=== PATIENT | female | born 1990 | race Caucasian/White ===

== ENCOUNTER 2016-06-11 16:42 | Emergency (ER) | payer SELFPAY ==
--- NOTE | 2016-06-11 17:04 | ER Document Report ---
ED Medical Screen (RME) - General Stated Complaint: VAGINAL BLEEDING Mode of Arrival: Ambulatory Information source: Patient Notes: Patient states she is about 5 or 6 weeks and has had vaginal bleeding. Patient reports cramping and dizziness. . hx: None I have greeted and performed a rapid initial assessment of this patient. A comprehensive ED assessment and evaluation of the patient, analysis of test results and completion of the medical decision making process will be conducted by additional ED providers. TRAVEL OUTSIDE OF THE [place] IN LAST 30 DAYS: No - Related Data Allergies/Adverse Reactions: No Known Allergies Allergy (Verified 08/18/15 22:53) Past Medical History - Immunizations Hx Diphtheria, Pertussis, Tetanus Vaccination: - unk Physical Exam - Vital signs Vitals: Temp Pulse Resp BP Pulse Ox 98.2 F 74 16 113/61 100 06/11/16 16:56 06/11/16 16:56 06/11/16 16:56 06/11/16 16:56 06/11/16 16:56 - Abdominal Tenderness: Tender - Lower pelvic Course - Re-evaluation Re-evalutation: 06/11/16 17:[address] Haley who agrees with plan for ultrasound. - Vital Signs Vital signs: Temp Pulse Resp BP Pulse Ox 98.2 F 74 16 113/61 100 06/11/16 16:56 06/11/16 16:56 06/11/16 16:56 06/11/16 16:56 06/11/16 16:56
[2016-06-11 18:19] LABS: ABSOLUTE BASOPHILS # (AUTO) 0.1 10^3/uL (0.0-0.2); ABSOLUTE EOSINOPHILS # (AUTO) 0.2 10^3/uL (0.0-0.6); ABSOLUTE LYMPHOCYTES (AUTO) 2.7 10^3/uL (0.5-4.7); ABSOLUTE MONOCYTES (AUTO) 0.6 10^3/uL (0.1-1.4); ABSOLUTE NEUT (AUTO) 8.8 10^3/uL (1.7-8.2); BASOPHILS % (AUTO) 0.5 % (0-2); EOSINOPHILS % (AUTO) 1.8 % (0-6); HEMATOCRIT 39.6 % (36.0-47.0); HEMOGLOBIN 12.9 g/dL (12.0-15.5); HGB HCT DIFFERENCE -0.9; LYMPHOCYTES % (AUTO) 21.8 % (13-45); MEAN CORPUSCULAR HEMOGLOBIN 27.1 pg (27.0-33.4); MEAN CORPUSCULAR HGB CONC 32.6 g/dL (32.0-36.0); MEAN CORPUSCULAR VOLUME 83 fl (80-97); MONOCYTES % (AUTO) 5.2 % (3-13); RED BLOOD COUNT 4.77 10^6/uL (3.72-5.28); RED CELL DISTRIBUTION WIDTH 13.4 % (11.5-14.0); SEGMENTED NEUTROPHILS % (AUTO) 70.7 % (42-78); WHITE BLOOD COUNT 12.4 10^3/uL (4.0-10.5)
[2016-06-11 18:26] LABS: APPEARANCE,URINE CLEAR; BILIRUBIN,URINE NEGATIVE (NEGATIVE); GLUCOSE, URINE NEGATIVE (NEGATIVE); KETONES,URINE NEGATIVE (NEGATIVE); LEUKOCYTE ESTERASE,URINE NEGATIVE (NEGATIVE); NITRITE,URINE NEGATIVE (NEGATIVE); PROTEIN,URINE NEGATIVE (NEGATIVE); URINE SPECIFIC GRAVITY 1.013; UROBILINOGEN,URINE NEGATIVE mg/dL (<2.0)
[2016-06-11 18:36] LABS: ALANINE AMINOTRANSFERASE 28 U/L (9-52); ALBUMIN 4.2 g/dL (3.5-5.0); ALKALINE PHOSPHATASE 50 U/L (38-126); ANION GAP 10 (5-19); ASPARTATE AMINO TRANSFERASE 22 U/L (14-36); BILIRUBIN,TOTAL 0.4 mg/dL (0.2-1.3); BLOOD UREA NITROGEN 15 mg/dL (7-20); CALCIUM 9.6 mg/dL (8.4-10.2); CARBON DIOXIDE 26 mmol/L (22-30); CHLORIDE 101 mmol/L (98-107); CREATININE RESULT 0.56 mg/dL (0.52-1.25); GLUCOSE 82 mg/dL (75-110); POTASSIUM 4.6 mmol/L (3.6-5.0); SODIUM 136.9 mmol/L (137-145); TOTAL PROTEIN 7.6 g/dL (6.3-8.2)
--- NOTE | 2016-06-11 20:07 | ER Document Report ---
ED GI/ - General Chief Complaint: Vag Bleeding, +preg <12wks Stated Complaint: VAGINAL BLEEDING Mode of Arrival: Ambulatory Information source: Patient TRAVEL OUTSIDE OF THE [place] IN LAST 30 DAYS: No - HPI Patient complains to provider of: Pelvic pain, , Vaginal bleeding Onset: This evening Timing/Duration: Sudden Quality of pain: Cramping Severity at maximum: Mild Context: . denies: Bad food, Lifting, Out of the country travel, Recent trauma Location: Pelvis Vaginal bleeding (Compared to normal period): Heavier - ALITTLE HEAVIER THAN A NORMAL PERIOD, NOW HAS DECREASED Menstrual period history: LMP: 05/03/2016 : 3 Para: 1 Abortions: 1 Sexual history: Active Associated symptoms: None Exacerbated by: Denies Relieved by: Denies Similar symptoms previously: Yes - W/ PRIOR SPONT. AB Recently seen / treated by doctor: No - Related Data Allergies/Adverse Reactions: No Known Allergies Allergy (Verified 08/18/15 22:53) Past Medical History - General Information source: Patient - Social History Smoking Status: Unknown if Ever Smoked Chew tobacco use (# tins/day): No Frequency of alcohol use: None Drug Abuse: None Lives with: Spouse/Significant other Family History: Reviewed & Not Pertinent Patient has suicidal ideation: No Patient has homicidal ideation: No - Past Medical History Cardiac Medical History: Reports: None Pulmonary Medical History: Reports: None EENT Medical History: Reports: None Neurological Medical History: Reports: None Endocrine Medical History: Reports: None Renal/ Medical History: Reports: None. Denies: Hx Peritoneal Dialysis Malignancy Medical History: Reports: None GI Medical History: Reports: None Musculoskeltal Medical History: Reports None Psychiatric Medical History: Reports: None Surgical Hx: Negative - Immunizations Hx Diphtheria, Pertussis, Tetanus Vaccination: - unk Review of Systems - Review of Systems Constitutional: No symptoms reported EENT: No symptoms reported Cardiovascular: No symptoms reported Respiratory: No symptoms reported Gastrointestinal: No symptoms reported Genitourinary: No symptoms reported Female Genitourinary: See HPI Musculoskeletal: No symptoms reported Skin: No symptoms reported Neurological/Psychological: No symptoms reported Physical Exam - Vital signs Vitals: Temp Pulse Resp BP Pulse Ox 98.2 F 74 16 113/61 100 06/11/16 16:56 06/11/16 16:56 06/11/16 16:56 06/11/16 16:56 06/11/16 16:56 Interpretation: Normal - General General appearance: Appears well, Alert In distress: None - HEENT Head: Normocephalic Eyes: Normal Conjunctiva: Normal Ears: Normal Nasal: Normal Mouth/Lips: Normal Mucous membranes: Normal - Respiratory Respiratory status: No respiratory distress - Genitourinary Notes: TEST ARCHITECT EXAM OMITTED PER PATIENT REQUEST - Extremities General upper extremity: Normal inspection General lower extremity: Normal inspection - Neurological Neuro grossly intact: Yes Cognition: Normal Orientation: AAOx4 - Psychological Associated symptoms: Normal affect, Normal mood - Skin Skin Temperature: Warm Skin Moisture: Dry Skin Color: Normal Skin Turgor: Elastic Course - Re-evaluation Re-evalutation: 06/11/16 20:14 Results of laboratory and ultrasound evaluation discussed in detail with patient. She understands the possibility of having a spontaneous , and is aware of the importance of timely follow-up. - Vital Signs Vital signs: Temp Pulse Resp BP Pulse Ox 98.2 F 74 16 113/61 100 06/11/16 16:56 06/11/16 16:56 06/11/16 16:56 06/11/16 16:56 06/11/16 16:56 - Laboratory Result Diagrams: 06/11/16 17:50 06/11/16 17:50 Laboratory results interpreted by me: 06/11/16 06/11/16 06/11/16 17:50 17:50 17:50 WBC 12.4 H Absolute Neutrophils 8.8 H Sodium 136.9 L Beta HCG, Quant 16139.00 H Urine Blood MODERATE H Discharge - Discharge Clinical Impression: Vaginal bleeding in patient at less than 20 weeks gestation Condition: Stable Disposition: HOME, SELF-CARE Instructions: Bleeding During Early ([facility]) Additional Instructions: BED REST FOR NEXT 48 HOURS. DRINK PLENTY OF FLUIDS. FOLLOW UP SUNDAY WITH [facility], CALL OFFICE TOMORROW ( SUNDAY) FOR APPT. RETURN TO E.R. FOR RE-EVALUATION IF YOU GET WORSE OR IF ANY NEW PROBLEMS, ANY TIME. Referrals: SANDHYA DAI MD [ACTIVE STAFF] - 06/13/16
[2016-06-11 20:17] VITALS: BP 120/62
== END 2016-06-11 20:15 | disposition home or self-care (01) ==
LOC: ER 16:42
DX: O20.9 Hemorrhage in early pregnancy, unspecified (principal); Z3A.01 Less than 8 weeks gestation of pregnancy
CPT/HCPCS: 36415; 76817; 80053; 81001; 84702; 85025; 86900; 86901; 99284

== ENCOUNTER 2016-06-13 16:02 | Emergency (ER) | payer SELFPAY | END 2016-06-13 17:00 | disposition left against medical advice (07) | LOC: ER 16:02 | DX: Z53.9 Procedure and treatment not carried out, unspecified reason (principal); R10.30 Lower abdominal pain, unspecified ==

== ENCOUNTER 2016-07-17 15:11 | Emergency (ER) | payer SELFPAY ==
--- NOTE | 2016-07-17 15:17 | ER Document Report ---
ED Medical Screen (RME) - General Stated Complaint: ABDOMINAL PAIN Mode of Arrival: Ambulatory Information source: Patient Notes: She presents to the emergency department with lower abdominal pain with brown red vaginal discharge. Patient reports she is . Denies fever vomiting diarrhea. I have greeted and performed a rapid initial assessment of this patient. A comprehensive ED assessment and evaluation of the patient, analysis of test results and completion of the medical decision making process will be conducted by additional ED providers. TRAVEL OUTSIDE OF THE [place] IN LAST 30 DAYS: No - Related Data Allergies/Adverse Reactions: No Known Allergies Allergy (Verified 07/17/16 15:15) Past Medical History Renal/ Medical History: Denies: Hx Peritoneal Dialysis - Immunizations Hx Diphtheria, Pertussis, Tetanus Vaccination: - unk
[2016-07-17 15:18] VITALS: BP 104/56
[2016-07-17 15:40] LABS: ABSOLUTE EOSINOPHILS # (AUTO) 0.1 10^3/uL (0.0-0.6); ABSOLUTE LYMPHOCYTES (AUTO) 1.8 10^3/uL (0.5-4.7); ABSOLUTE MONOCYTES (AUTO) 0.6 10^3/uL (0.1-1.4); ABSOLUTE NEUT (AUTO) 6.8 10^3/uL (1.7-8.2); BASOPHILS % (AUTO) 0.3 % (0-2); EOSINOPHILS % (AUTO) 0.7 % (0-6); HEMATOCRIT 35.6 % (36.0-47.0); HEMOGLOBIN 11.8 g/dL (12.0-15.5); HGB HCT DIFFERENCE -0.2; LYMPHOCYTES % (AUTO) 18.9 % (13-45); MEAN CORPUSCULAR HEMOGLOBIN 27.3 pg (27.0-33.4); MEAN CORPUSCULAR HGB CONC 33.2 g/dL (32.0-36.0); MEAN CORPUSCULAR VOLUME 82 fl (80-97); MONOCYTES % (AUTO) 6.7 % (3-13); RED BLOOD COUNT 4.33 10^6/uL (3.72-5.28); RED CELL DISTRIBUTION WIDTH 13.3 % (11.5-14.0); SEGMENTED NEUTROPHILS % (AUTO) 73.4 % (42-78); WHITE BLOOD COUNT 9.3 10^3/uL (4.0-10.5)
[2016-07-17 15:51] LABS: ALANINE AMINOTRANSFERASE 31 U/L (9-52); ALBUMIN 4.1 g/dL (3.5-5.0); ALKALINE PHOSPHATASE 54 U/L (38-126); ANION GAP 9 (5-19); ASPARTATE AMINO TRANSFERASE 22 U/L (14-36); BILIRUBIN,TOTAL 0.3 mg/dL (0.2-1.3); BLOOD UREA NITROGEN 11 mg/dL (7-20); CALCIUM 9.6 mg/dL (8.4-10.2); CARBON DIOXIDE 25 mmol/L (22-30); CHLORIDE 102 mmol/L (98-107); CREATININE RESULT 0.52 mg/dL (0.52-1.25); GLUCOSE 85 mg/dL (75-110); POTASSIUM 4.1 mmol/L (3.6-5.0); SODIUM 135.8 mmol/L (137-145)
[2016-07-17 15:53] LABS: APPEARANCE,URINE SLIGHTLY-CLOUDY; BILIRUBIN,URINE NEGATIVE (NEGATIVE); GLUCOSE, URINE NEGATIVE (NEGATIVE); KETONES,URINE 20 mg/dL (NEGATIVE); LEUKOCYTE ESTERASE,URINE SMALL (NEGATIVE); NITRITE,URINE POSITIVE (NEGATIVE); PROTEIN,URINE NEGATIVE (NEGATIVE); URINE SPECIFIC GRAVITY 1.017; UROBILINOGEN,URINE NEGATIVE mg/dL (<2.0)
[2016-07-17] MEDS ORDERED: CEPHALEXIN 500 MG CAPSULE PO ONE (16:59)
--- NOTE | 2016-07-17 17:10 | ER Document Report ---
ED GI/ - General Chief Complaint: Vag Bleeding, +preg <12wks Stated Complaint: ABDOMINAL PAIN Time seen by provider: 16:50 Mode of Arrival: Ambulatory Information source: Patient Notes: 25-year-old female presents to ED for vaginal bleeding with brown E shred discharge. She states she is about 10 weeks denies any nausea vomiting diarrhea or states she does have a little bit of pinching pain in her pelvic area. TRAVEL OUTSIDE OF THE [place] IN LAST 30 DAYS: No - HPI Patient complains to provider of: Pelvic pain, , Vaginal bleeding Onset: Yesterday Timing/Duration: Intermittent Quality of pain: Other - Pinching Severity at maximum: Mild Pain Level: 1 Location: Pelvis Vaginal bleeding (Compared to normal period): Spotting : 2 Para: 1 heart tones (bpm): 168 EDC: 02/06/17 ABO type: O Rh factor: + OB ultrasound done: Yes Associated symptoms: Vaginal discharge Exacerbated by: Denies Relieved by: Denies Similar symptoms previously: Yes Recently seen / treated by doctor: No - Related Data Allergies/Adverse Reactions: No Known Allergies Allergy (Verified 07/17/16 15:15) Past Medical History - General Information source: Patient - Social History Smoking Status: Never Smoker Cigarette use (# per day): No Chew tobacco use (# tins/day): No Smoking Education Provided: No Frequency of alcohol use: None - None since she found out she was Drug Abuse: None - None 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 Lives with: Alone - Alone with her child Family History: Hypertension Patient has suicidal ideation: No Patient has homicidal ideation: No - Past Medical History Cardiac Medical History: Reports: None Pulmonary Medical History: Reports: None EENT Medical History: Reports: None Neurological Medical History: Reports: None Endocrine Medical History: Reports: None Renal/ Medical History: Reports: None Malignancy Medical History: Reports: None GI Medical History: Reports: None Musculoskeltal Medical History: Reports None Skin Medical History: Reports Hx Cellulitis Psychiatric Medical History: Reports: None Traumatic Medical History: Reports: None Infectious Medical History: Reports: None Surgical Hx: Negative Past Surgical History: Reports: None - Immunizations Hx Diphtheria, Pertussis, Tetanus Vaccination: - unk Review of Systems - Review of Systems Constitutional: No symptoms reported EENT: No symptoms reported Cardiovascular: No symptoms reported Respiratory: No symptoms reported Gastrointestinal: No symptoms reported Genitourinary: No symptoms reported Female Genitourinary: , Vaginal bleeding - Brown and red drainage Musculoskeletal: No symptoms reported Skin: No symptoms reported Hematologic/Lymphatic: No symptoms reported Neurological/Psychological: No symptoms reported -: Yes All other systems reviewed and negative Physical Exam - Vital signs Vitals: Temp Pulse Resp BP Pulse Ox 98.1 F 68 20 104/56 L 100 07/17/16 15:16 07/17/16 15:16 07/17/16 15:16 07/17/16 15:16 07/17/16 15:16 Interpretation: Normal - General General appearance: Appears well, Alert - HEENT Head: Normocephalic, Atraumatic Eyes: Normal Pupils: PERRL - Respiratory Respiratory status: No respiratory distress Chest status: Nontender Breath sounds: Normal Chest palpation: Normal - Cardiovascular Rhythm: Regular Heart sounds: Normal auscultation Murmur: No - Abdominal Inspection: Gravid female Distension: No distension Bowel sounds: Normal Tenderness: Tender - Mildly tender Organomegaly: No organomegaly - Back Back: Normal, Nontender - Extremities General upper extremity: Normal inspection, Nontender, Normal color, Normal ROM , Normal temperature General lower extremity: Normal inspection, Nontender, Normal color, Normal ROM , Normal temperature, Normal weight bearing. No: Cande's sign - Neurological Neuro grossly intact: Yes Cognition: Normal Orientation: AAOx4 Ayesha Coma Scale Eye Opening: Spontaneous [place] Coma Scale Verbal: Oriented [place] Coma Scale Motor: Obeys Commands [place] Coma Scale Total: 15 Speech: Normal Motor strength normal: LUE, RUE, LLE, RLE Sensory: Normal - Psychological Associated symptoms: Normal affect, Normal mood - Skin Skin Temperature: Warm Skin Moisture: Dry Skin Color: Normal Course - Re-evaluation Re-evalutation: 07/17/16 17:46 Discussed labs ultrasound with patient we'll discharge patient home to follow- up with [facility]. Patient is 10 weeks and 6 days with a IUP and a small subchorionic bleed. 07/17/16 19:04 - Vital Signs Vital signs: Temp Pulse Resp BP Pulse Ox 98.1 F 68 20 104/56 L 100 07/17/16 15:16 07/17/16 15:16 07/17/16 15:16 07/17/16 15:16 03/13/17 15:16 - Laboratory Result Diagrams: 07/17/16 15:20 07/17/16 15:20 Laboratory results interpreted by me: 07/17/16 07/17/16 07/17/16 15:20 15:20 15:25 Hgb 11.8 L Hct 35.6 L Sodium 135.8 L Beta HCG, Quant 707215.00 H Urine Ketones 20 H Urine Nitrite POSITIVE H Ur Leukocyte Esterase SMALL H - Diagnostic Test Radiology reviewed: Image reviewed, Reports reviewed Discharge - Discharge Clinical Impression: Normal intrauterine on ultrasound in first trimester, vaginal bleeding early UTI (urinary tract infection) Qualifiers: Urinary tract infection type: site unspecified Hematuria presence: without hematuria Qualified Code(s): N39.0 - Urinary tract infection, site not specified Condition: Stable Disposition: HOME, SELF-CARE Instructions: Bleeding During Early ([facility]), Pelvic Pain in ( [facility]) Additional Instructions: : You are . care is best started as early in as possible. If you're unsure about continuing this , you should discuss this with your physician or with gamma facilities operator at [facility]. You should take only medications approved by your physician. Acetaminophen can safely be taken for minor pains. As a rule, medication for chronic conditions such as asthma or seizures can safely be continued. You should discuss with the physician every medicine you take. Any regular exercise program can be continued. Talk to your physician, however, before engaging in competitive or demanding sports. Alcohol, smoking, and "street drugs" are dangerous to your baby. Cocaine is especially dangerous. Don't use any illicit drugs! BLEEDING DURING EARLY : You have been evaluated for passing blood while . While we take this symptom very seriously, most women with your degree of bleeding will go on to have a perfectly normal baby. At this time, there is no indication that a miscarriage will occur. (A miscarriage occurs when the fetus is abnormal. There is no medicine or treatment to prevent it.) A more serious cause of bleeding is tubal (or ectopic) . An ultrasound usually can show whether the is in the uterus or in the tube. Sometimes in early , no fetus is seen. In this case, careful follow-up, including repeat blood tests and repeat ultrasound, is necessary. Do not douche or have sex for at least a week, or until OK'd by the doctor. Don't use tampons. Call the doctor or return for re-examination if there is an increase in bleeding or cramping, extreme weakness, fainting, new abdominal pain, fever, or passage of tissue. URINARY TRACT INFECTION: Your evaluation indicates that you have a urinary tract infection. This is due to germs growing in the bladder. This is a common problem. This infection usually responds quickly to antibiotics. Your antibiotic should be taken exactly as prescribed. Drink plenty of fluids -- three to four quarts a day. Occasionally, a bladder anesthetic will be prescribed to help stop the feeling of urgency until the antibiotic has a chance to clear the infection. This may cause your urine to be dark orange. Certain urine infections require a culture. If the doctor obtained a culture, the results will be back in two days. You should call to see if a change in treatment is needed. A repeat urinalysis after you finish treatment is often recommended. The physician will let you know if further testing is required. Call the doctor if you develop fever, chills, flank pain, inability to urinate, or blood in the urine. CEPHALEXIN: The antibiotic you've been prescribed is a member of the cephalosporin class. This type of antibiotic covers a wide variety of infections, including those of the skin, lungs, and urinary tract. It's useful for staph infections. This antibiotic is slightly similar to the penicillin family. In rare cases , a person who is allergic to penicillin will also be allergic to this medication. If you have had a severe allergic reaction to penicillin, and have not taken this antibiotic since that time, notify your doctor. Antibiotics which cover many germs ("broad spectrum" antibiotics) are more likely to cause diarrhea or "yeast" infections. Women prone to vaginal yeast problems may suffer an attack after taking this antibiotic. In infants, oral thrush (white spots "stuck" on the cheek) or yeast diaper rash may result. See your doctor if these problems occur. Call at once if you develop itching, hives , shortness of breath, or lightheadedness. FOLLOW-UP CARE: If you have been referred to a physician for follow-up care, call the physician s office for an appointment as you were instructed or within the next two days. If you experience worsening or a significant change in your symptoms (very heavy bleeding with large clots of blood, passage of tissue, more severe abdominal / pelvic pain or cramping, feeling faint or severe weakness, fever, etc.), notify the physician immediately or return to the Emergency Department at any time for re-evaluation. OBSTETRIC-GYNECOLOGIC (OB-HOGS[facility] OPENER) PHYSICIANS IN [place]: [facility] [address] [place] [address] [phone] For active duty and dependents diagnosed with a threatened or miscarriage, you should follow up in the following manner: Standard patients who have a local civilian provider should follow up with that provider. Patients of the Family Practice Clinic should call your Team Nurse at 8: 00 am the following morning for further instructions. If you are neither a Standard patient nor a patient of the Family Practice Clinic, you should follow up at the [facility] [place] ([facility]) . Patients already enrolled in the [facility], [facility] patients not assigned to the Family Practice Clinic, and Active Duty patients not assigned to Family Practice Clinic should report to the [facility] at 8:00 am the next morning that the [facility] is open and then you will be seen in the OB Clinic at 11:00 am. Prescriptions: Cephalexin Monohydrate [Keflex 500 mg Capsule] 500 mg PO QID #20 capsule
== END 2016-07-17 17:55 | disposition home or self-care (01) ==
LOC: ER 15:11
DX: O23.41 Unspecified infection of urinary tract in pregnancy, first trimester (principal); O20.9 Hemorrhage in early pregnancy, unspecified; R10.9 Unspecified abdominal pain; Z3A.10 10 weeks gestation of pregnancy
CPT/HCPCS: 36415; 76801; 80053; 81001; 84702; 85025; 86900; 86901; 99284

== ENCOUNTER 2016-09-30 16:02 | Emergency (ER) | payer MEDICAID ==
[2016-09-30 16:10] VITALS: BP 98/56
--- NOTE | 2016-09-30 16:54 | EKG REPORT ---
SEVERITY:- NORMAL ECG - SINUS RHYTHM : Confirmed by: Robin Gaxiola MD 30-Sep-2016 16:53:51
--- NOTE | 2016-09-30 16:56 | ER Document Report ---
ED Medical Screen (RME) - General Chief Complaint: Chest Pain Stated Complaint: CHEST PAIN Time Seen by Provider: 09/30/16 16:15 Mode of Arrival: Ambulatory Information source: Patient TRAVEL OUTSIDE OF THE [place] IN LAST 30 DAYS: No - HPI Patient complains to provider of: Chest pain and shortness of breath Onset: This morning Onset/Duration: Sudden Quality of pain: Sharp Severity: Moderate Associated Symptoms: Shortness of breath Exacerbated by: Supine Similar symptoms previously: No Recently seen / treated by doctor: Yes Notes: 09/30/16 16:55 Is a 26-year-old female who is with no previous complications, who presents to the emergency room complaining of chest pain and shortness of breath, she is currently 22 weeks denies any recent periods of immobilization, no history of blood clots - Related Data Allergies/Adverse Reactions: No Known Allergies Allergy (Verified 09/30/16 16:07) Past Medical History Renal/ Medical History: Denies: Hx Peritoneal Dialysis Skin Medical History: Reports Hx Cellulitis - Immunizations Hx Diphtheria, Pertussis, Tetanus Vaccination: - unk Physical Exam - Vital signs Vitals: Temp Pulse Resp BP Pulse Ox 98.3 F 80 20 98/56 L 97 09/30/16 16:07 09/30/16 16:07 09/30/16 16:07 09/30/16 16:07 09/30/16 16:07 Course - Vital Signs Vital signs: Temp Pulse Resp BP Pulse Ox 98.3 F 80 20 98/56 L 97 09/30/16 16:07 09/30/16 16:07 09/30/16 16:07 09/30/16 16:07 09/30/16 16:07
--- NOTE | 2016-09-30 17:03 | RADIOLOGY REPORT (SQ) ---
EXAM DESCRIPTION: CHEST PA/LAT COMPLETED DATE/TIME: 09/30/2016 4:50 pm REASON FOR STUDY: cp COMPARISON: None. EXAM PARAMETERS: NUMBER OF VIEWS: two views TECHNIQUE: Digital Frontal and Lateral radiographic views of the chest acquired. RADIATION DOSE: NA LIMITATIONS: none FINDINGS: LUNGS AND PLEURA: No opacities, masses or pneumothorax. No pleural effusion. MEDIASTINUM AND HILAR STRUCTURES: No masses or contour abnormalities. HEART AND VASCULAR STRUCTURES: Heart normal size. No evidence for failure. BONES: No acute findings. HARDWARE: None in the chest. OTHER: No other significant finding. IMPRESSION: NO SIGNIFICANT RADIOGRAPHIC FINDING IN THE CHEST. TECHNICAL DOCUMENTATION: JOB ID: [id number] [employer]- All Rights Reserved
--- NOTE | 2016-09-30 17:31 | ER Document Report ---
ED General - General Mode of Arrival: Ambulatory Information source: Patient TRAVEL OUTSIDE OF THE [place]. IN LAST 30 DAYS: No - HPI Onset: This morning Onset/Duration: Intermittent Quality of pain: Sharp <MANJEET FINN - Last Filed: 09/30/16 17:32> <RAD GALAN - Last Filed: 09/30/16 23:56> - General Chief Complaint: Chest Pain Stated Complaint: CHEST PAIN Time Seen by Provider: 09/30/16 16:15 Notes: Patient is a 26-year-old female who presents to the emergency department today with complaints of left-sided chest pain that she noticed upon awakening today. Patient states the pain is located behind her left breast. Patient states it hurts to breathe. Patient states her pain is exacerbated with breathing in. Patient is 22 weeks . Patient is . Patient denies any complications with her first . Patient denies any family history of any clotting disorders. Patient denies any leg swelling or recent travel. ( MANJEET FINN) - Related Data Allergies/Adverse Reactions: No Known Allergies Allergy (Verified 09/30/16 16:07) Past Medical History - General Information source: Patient - Social History Smoking Status: Never Smoker Cigarette use (# per day): No Chew tobacco use (# tins/day): No Frequency of alcohol use: None Drug Abuse: None Lives with: Family Family History: Reviewed & Not Pertinent, Hypertension Patient has suicidal ideation: No Patient has homicidal ideation: No Skin Medical History: Reports Hx Cellulitis Surgical Hx: Negative - Immunizations Hx Diphtheria, Pertussis, Tetanus Vaccination: - unk <MANJEET FINN - Last Filed: 09/30/16 17:32> Review of Systems - Review of Systems Constitutional: No symptoms reported EENT: No symptoms reported Cardiovascular: No symptoms reported Respiratory: See HPI, Hurts to breathe - behind left breast Gastrointestinal: No symptoms reported Genitourinary: No symptoms reported Female Genitourinary: See HPI, Musculoskeletal: denies: Leg swelling Skin: No symptoms reported Hematologic/Lymphatic: No symptoms reported Neurological/Psychological: No symptoms reported -: Yes All other systems reviewed and negative <MANJEET FINN - Last Filed: 09/30/16 17:32> Physical Exam <MANJEET FINN - Last Filed: 09/30/16 17:32> <RAD GALAN - Last Filed: 09/30/16 23:56> - Vital signs Vitals: Temp Pulse Resp BP Pulse Ox 98.3 F 80 20 98/56 L 97 09/30/16 16:07 09/30/16 16:07 09/30/16 16:07 09/30/16 16:07 09/30/16 16:07 - Notes Notes: Physical Exam: General: Alert, appears well. HEENT: Normocephalic. Atraumatic. PERRL. Extraocular movements intact. Oropharynx clear. Neck: Supple. Non-tender. Respiratory: No respiratory distress. Clear and equal breath sounds bilaterally. Cardiovascular: Regular rate and rhythm. Abdominal: Normal Inspection. Non-tender. No distension. Normal Bowel Sounds. Back: Non-tender. No deformity or step off. Extremities: Moves all four extremities. Upper extremities: Normal inspection. Normal ROM. Lower extremities: Normal inspection. No edema. Normal ROM. Neurological: Normal cognition. AAOx4. Normal speech. Psychological: Normal affect. Normal Mood. Skin: Warm. Dry. Normal color. (MANJEET FINN) Course - Laboratory Result Diagrams: 09/30/16 17:55 09/30/16 17:55 <RAD GALAN - Last Filed: 09/30/16 23:56> - Vital Signs Vital signs: Temp Pulse Resp BP Pulse Ox 98.3 F 80 20 98/56 L 97 09/30/16 16:07 09/30/16 16:07 09/30/16 16:07 09/30/16 16:07 09/30/16 16:07 - Laboratory Laboratory results interpreted by me: 09/30/16 09/30/16 17:55 17:55 Hgb 10.9 L Hct 33.4 L Sodium 134.2 L Creatinine 0.48 L Discharge <MANJEET FINN - Last Filed: 09/30/16 17:32> <RAD GALAN - Last Filed: 09/30/16 23:56> - Discharge Clinical Impression: Chest pain, atypical Condition: Good Disposition: HOME, SELF-CARE Instructions: Chest Pain of Unclear Cause ([facility]) Additional Instructions: follow up with your doctor if symptoms persist. You may try Tylenol as needed for pain. You may use TUMS if you think reflux may be a factor in your chest pain. Scribe Attestation: 09/30/16 19:45 I personally performed the services described in the documentation, reviewed and edited the documentation which was dictated to the scribe in my presence, and it accurately records my words and actions. (RAD GALAN) Scribe Documentation - Scribe Written by Twan:: Twan Mantilla, 09/30/16 1738 acting as scribe for :: Elissa <MANJEET FINN - Last Filed: 09/30/16 17:32>
[2016-09-30 18:10] LABS: ABSOLUTE EOSINOPHILS # (AUTO) 0.2 10^3/uL (0.0-0.6); ABSOLUTE MONOCYTES (AUTO) 0.9 10^3/uL (0.1-1.4); ABSOLUTE NEUT (AUTO) 7.5 10^3/uL (1.7-8.2); BASOPHILS % (AUTO) 0.4 % (0-2); EOSINOPHILS % (AUTO) 1.6 % (0-6); HEMATOCRIT 33.4 % (36.0-47.0); HEMOGLOBIN 10.9 g/dL (12.0-15.5); HGB HCT DIFFERENCE -0.7; LYMPHOCYTES % (AUTO) 18.6 % (13-45); MEAN CORPUSCULAR HEMOGLOBIN 27.3 pg (27.0-33.4); MEAN CORPUSCULAR HGB CONC 32.7 g/dL (32.0-36.0); MEAN CORPUSCULAR VOLUME 83 fl (80-97); MONOCYTES % (AUTO) 8.4 % (3-13); RED BLOOD COUNT 4.01 10^6/uL (3.72-5.28); RED CELL DISTRIBUTION WIDTH 13.7 % (11.5-14.0); WHITE BLOOD COUNT 10.5 10^3/uL (4.0-10.5)
[2016-09-30 18:25] LABS: ALANINE AMINOTRANSFERASE 32 U/L (9-52); ALBUMIN 3.8 g/dL (3.5-5.0); ALKALINE PHOSPHATASE 67 U/L (38-126); ANION GAP 7 (5-19); ASPARTATE AMINO TRANSFERASE 26 U/L (14-36); BILIRUBIN,DIRECT 0.3 mg/dL (0.0-0.4); BILIRUBIN,TOTAL 0.4 mg/dL (0.2-1.3); BLOOD UREA NITROGEN 10 mg/dL (7-20); CALCIUM 9.8 mg/dL (8.4-10.2); CARBON DIOXIDE 26 mmol/L (22-30); CHLORIDE 101 mmol/L (98-107); CREATININE RESULT 0.48 mg/dL (0.52-1.25); GLUCOSE 84 mg/dL (75-110); POTASSIUM 4.3 mmol/L (3.6-5.0); SODIUM 134.2 mmol/L (137-145)
--- NOTE | 2016-09-30 19:18 | RADIOLOGY REPORT (SQ) ---
EXAM DESCRIPTION: CTA CHEST COMPLETED DATE/TIME: 09/30/2016 6:54 pm REASON FOR STUDY: SOB COMPARISON: Chest x-ray dated 09/30/2016 TECHNIQUE: CT scan of the chest performed using helical scanning technique with dynamic intravenous contrast injection. Images reviewed with lung, soft tissue and bone windows. Reconstructed coronal and sagittal MPR images reviewed. Additional 3 dimensional post-processing performed to develop Maximal Intensity Projection images (SD P). All images stored on PACS. All CT scanners at this facility use dose modulation, iterative reconstruction, and/or weight based d osing when appropriate to reduce radiation dose to as low as reasonably achievable (ALARA). [facility]: Dose Right [facility]: CareDose [facility]: Dose Right [facility]: Teradose 4D [facility]: [employer] CONTRAST TYPE AND DOSE: 63 mL Isovue 370 RENAL FUNCTION: None required. The patient is less than 50 years old. RADIATION DOSE: 38.71 mGy. LIMITATIONS: Study is limited to motion artifact and suboptimal opacification of the pulmonary arter ies FINDINGS: LUNGS AND PLEURA: No masses, infiltrates, pneumothorax. No pleural effusions, calcificati ons. AORTA AND GREAT VESSELS: No aneurysm or dissection. HEART: No pericardial effusion. PULMONARY ARTERIES: No emboli visualized in the main pulmonary arteries or the segmental branches. HILAR AND MEDIASTINAL STRUCTURES: No identified masses or abnormal nodes. HARDWARE: None in the chest. UPPER ABDOMEN: No significant findings. Limited exam. THYROID AND OTHER SOFT TISSUES: No masses. No adenopathy. BONES: No acute or significant finding. 3D MIPS: Confirm above findings. OTHER: No other significant finding. IMPRESSION: No evidence for pulmonary embolic disease. No acute consolidations or pleural effusions are identified. Other findings as noted above TECHNICAL DOCUMENTATION: JOB ID: [id number] Quality ID # [id number]: Final reports with documentation of one or more dose reduction techniques (e.g., Au tomated exposure control, adjustment of the mA and/or kV according to patient size, use of iterative reconstruction technique) 2010 [employer]- All Rights Reserved
== END 2016-09-30 20:00 | disposition home or self-care (01) ==
LOC: ER 16:02
DX: O26.92 Pregnancy related conditions, unspecified, second trimester (principal); R07.89 Other chest pain; R06.02 Shortness of breath; Z3A.22 22 weeks gestation of pregnancy
CPT/HCPCS: 36415; 71020; 71275; 80053; 84484; 85025; 93005; 93010; 99285

== ENCOUNTER 2016-12-11 23:34 | Outpatient (CLI) | payer MEDICAID ==
[2016-12-12 00:26] LABS: APPEARANCE,URINE CLEAR; BILIRUBIN,URINE NEGATIVE (NEGATIVE); GLUCOSE, URINE NEGATIVE (NEGATIVE); KETONES,URINE NEGATIVE (NEGATIVE); LEUKOCYTE ESTERASE,URINE TRACE (NEGATIVE); NITRITE,URINE NEGATIVE (NEGATIVE); PROTEIN,URINE NEGATIVE (NEGATIVE); URINE SPECIFIC GRAVITY 1.005; UROBILINOGEN,URINE NEGATIVE mg/dL (<2.0)
[2016-12-12 00:42] LABS: URINE BARBITURATES SCREEN NEGATIVE; URINE METHADONE SCREEN NEGATIVE; URINE OPIATES LOW NEGATIVE; URINE PHENCYCLIDINE SCREEN NEGATIVE
--- NOTE | 2016-12-12 01:02 | Non Stress Test Report ---
Non Stress Test Datetime Report Generated by CPN: 12/12/2016 01:02 DEMOGRAPHIC EGA NST: 32.3 INDICATION Indication for Study: Ordered by Provider Indication for Study (NST) Other: LC MONITORING Monitor Explained: Monitor Explained; Test Explained; Patient Verbalized Understanding Time on Monitor: 12/11/2016 23:46 Time off Monitor: 12/12/2016 00:59 NST Duration: 73 NST INTERVENTIONS NST Interventions: PO Hydration; Reposition Patient Physician Notified NST: Abel BABY A: [id number] BABY A Movement : Present Contraction Frequency : none FHR Baseline : 135 Accelerations : 15X15 Decelerations : None Variability : Moderate 6-25bpm NST Review: Meets Criteria for Reactive NST NST Review and Verified By : JASPER Alberto Results: Reactive NST REPORT Report Trigger: Send Report
== END 2016-12-12 01:05 | disposition home or self-care (01) ==
LOC: LC 23:34
PROVIDERS: ATTEND Specialist
PROC: 4A1HXCZ Monitoring of Products of Conception, Cardiac Rate, External Approach (ICD-10-PCS; principal; 2016-12-11)
DX: O47.03 False labor before 37 completed weeks of gestation, third trimester (principal); Z3A.32 32 weeks gestation of pregnancy
CPT/HCPCS: 59025; 80307; 81001

== ENCOUNTER 2016-12-27 19:44 | Outpatient (CLI) | payer MEDICAID ==
[2016-12-27 20:39] LABS: APPEARANCE,URINE SLIGHTLY-CLOUDY; BILIRUBIN,URINE NEGATIVE (NEGATIVE); GLUCOSE, URINE 50 mg/dL (NEGATIVE); KETONES,URINE NEGATIVE (NEGATIVE); LEUKOCYTE ESTERASE,URINE NEGATIVE (NEGATIVE); NITRITE,URINE NEGATIVE (NEGATIVE); PROTEIN,URINE NEGATIVE (NEGATIVE); URINE SPECIFIC GRAVITY 1.015; UROBILINOGEN,URINE NEGATIVE mg/dL (<2.0)
[2016-12-27 21:06] LABS: URINE BARBITURATES SCREEN NEGATIVE; URINE METHADONE SCREEN NEGATIVE; URINE OPIATES LOW NEGATIVE; URINE PHENCYCLIDINE SCREEN NEGATIVE
--- NOTE | 2016-12-27 22:40 | Non Stress Test Report ---
Non Stress Test Datetime Report Generated by CPN: 12/27/2016 22:40 DEMOGRAPHIC Test Number: 2 EGA NST: 34.5 INDICATION Indication for Study: Ordered by Provider MONITORING Monitor Explained: Monitor Explained; Test Explained; Patient Verbalized Understanding Time on Monitor: 12/27/2016 20:01 Time off Monitor: 12/27/2016 22:04 NST Duration: 123 NST INTERVENTIONS NST Interventions: PO Hydration; IV Fluids Physician Notified NST: Dr. Neilsen BABY A: [id number] BABY A Movement : Present Contraction Frequency : occasional FHR Baseline : 140 Accelerations : 15X15 Decelerations : Late; Variable Variability : Moderate 6-25bpm NST Review: Meets Criteria for Reactive NST NST Review and Verified By : JASPER Marie Results: Reactive NST COMMENTS NST Comments: Dr. Neilsen reviewed strip, monitored pt 1 hour after last (Annotations: Data stored by CPN on behalf of user) NST REPORT Report Trigger: Send Report
== END 2016-12-27 22:17 | disposition home or self-care (01) ==
LOC: LC 19:44
PROVIDERS: ATTEND Specialist
PROC: 4A1HXCZ Monitoring of Products of Conception, Cardiac Rate, External Approach (ICD-10-PCS; principal; 2016-12-27)
DX: O26.893 Other specified pregnancy related conditions, third trimester (principal); Z3A.34 34 weeks gestation of pregnancy; R10.9 Unspecified abdominal pain
CPT/HCPCS: 59025; 80307; 81001

== ENCOUNTER 2017-01-10 13:02 | Outpatient (CLI) | payer MEDICAID | END 2017-01-10 13:55 | disposition home or self-care (01) | LOC: LC 13:02 | PROVIDERS: ATTEND Specialist | DX: O36.8130 Decreased fetal movements, third trimester, not applicable or unspecified (principal); O24.419 Gestational diabetes mellitus in pregnancy, unspecified control; Z3A.36 36 weeks gestation of pregnancy | CPT/HCPCS: 59025 ==

== ENCOUNTER 2017-01-14 04:31 | Outpatient (CLI) | payer MEDICAID ==
--- NOTE | 2017-01-14 04:39 | Non Stress Test Report ---
Non Stress Test Datetime Report Generated by CPN: 01/14/2017 04:39 DEMOGRAPHIC EGA NST: 36.5 INDICATION Indication for Study: Other Indication for Study (NST) Other: GDM VITAL SIGNS Temperature - NST: 98.3 Pulse - NST: 90 RESP - NST: 18 NBPSYS NST: 108 NBPDIA NST: 52 MONITORING Monitor Explained: Monitor Explained; Test Explained; Patient Verbalized Understanding Time on Monitor: 01/10/2017 13:27 Time off Monitor: 01/10/2017 13:48 NST Duration: 21 NST INTERVENTIONS NST Interventions: PO Hydration; Reposition Patient Physician Notified NST: A. Emmel CNM, strip reviewed BABY A: [id number] BABY A Movement : Present Contraction Frequency : None FHR Baseline : 145 Accelerations : 15X15 Decelerations : None Variability : Moderate 6-25bpm NST Review: Meets Criteria for Reactive NST NST Review and Verified By : Lindsey Curiel RN NSRachel Results: Reactive NST REPORT Report Trigger: Send Report
[2017-01-14 05:28] LABS: URINE BARBITURATES SCREEN NEGATIVE; URINE METHADONE SCREEN NEGATIVE; URINE OPIATES LOW NEGATIVE; URINE PHENCYCLIDINE SCREEN NEGATIVE
[2017-01-14 05:42] LABS: APPEARANCE,URINE CLEAR; BILIRUBIN,URINE NEGATIVE (NEGATIVE); GLUCOSE, URINE NEGATIVE (NEGATIVE); KETONES,URINE TRACE mg/dL (NEGATIVE); LEUKOCYTE ESTERASE,URINE NEGATIVE (NEGATIVE); NITRITE,URINE NEGATIVE (NEGATIVE); PROTEIN,URINE NEGATIVE (NEGATIVE); URINE SPECIFIC GRAVITY 1.005; UROBILINOGEN,URINE NEGATIVE mg/dL (<2.0)
--- NOTE | 2017-01-14 06:50 | Non Stress Test Report ---
Non Stress Test Datetime Report Generated by CPN: 01/14/2017 06:50 DEMOGRAPHIC EGA NST: 37.2 INDICATION Indication for Study: Ordered by Provider URINE RESULTS Urine Protein, NST: Negative Urine Ketones - NST: Positive Urine Glucose - NST: Negative Urine Blood - NST: Negative MONITORING Monitor Explained: Monitor Explained; Test Explained; Patient Verbalized Understanding Time on Monitor: 01/14/2017 04:04 Time off Monitor: 01/14/2017 05:54 NST Duration: 110 NST INTERVENTIONS NST Interventions: None Physician Notified NST: H. Bryson CNM BABY A Movement : Present Contraction Frequency : Occasional FHR Baseline : 135 Accelerations : 15X15 Decelerations : None Variability : Moderate 6-25bpm NST Review: Meets Criteria for Reactive NST NST Review and Verified By : Tere Goldberg RN NST Results: Reactive NST REPORT Report Trigger: Send Report
== END 2017-01-14 06:12 | disposition home or self-care (01) ==
LOC: LC 04:31
PROVIDERS: ATTEND Obstetrics & Gynecology
PROC: 4A1HXCZ Monitoring of Products of Conception, Cardiac Rate, External Approach (ICD-10-PCS; principal; 2017-01-14)
DX: O47.1 False labor at or after 37 completed weeks of gestation (principal); Z3A.37 37 weeks gestation of pregnancy
CPT/HCPCS: 59025; 80307; 81005

== ENCOUNTER 2017-01-23 08:20 | Outpatient (CLI) | payer MEDICAID ==
[2017-01-23] MEDS ORDERED: TERBUTALINE SULFATE INJ/PF 1 MG/1 ML SDV ONE (08:27)
[2017-01-23 09:27] LABS: ABSOLUTE EOSINOPHILS # (AUTO) 0.1 10^3/uL (0.0-0.6); ABSOLUTE MONOCYTES (AUTO) 0.8 10^3/uL (0.1-1.4); ABSOLUTE NEUT (AUTO) 6.5 10^3/uL (1.7-8.2); BASOPHILS % (AUTO) 0.4 % (0-2); EOSINOPHILS % (AUTO) 1.3 % (0-6); HEMATOCRIT 32.9 % (36.0-47.0); HEMOGLOBIN 11.2 g/dL (12.0-15.5); HGB HCT DIFFERENCE 0.7; LYMPHOCYTES % (AUTO) 28.5 % (13-45); MEAN CORPUSCULAR HEMOGLOBIN 28.3 pg (27.0-33.4); MEAN CORPUSCULAR HGB CONC 34.1 g/dL (32.0-36.0); MEAN CORPUSCULAR VOLUME 83 fl (80-97); MONOCYTES % (AUTO) 7.8 % (3-13); RED BLOOD COUNT 3.96 10^6/uL (3.72-5.28); RED CELL DISTRIBUTION WIDTH 14.5 % (11.5-14.0); WHITE BLOOD COUNT 10.5 10^3/uL (4.0-10.5)
--- NOTE | 2017-01-23 10:30 | Non Stress Test Report ---
Non Stress Test Datetime Report Generated by CPN: 01/23/2017 10:30 DEMOGRAPHIC EGA NST: 38.4 INDICATION Indication for Study: Ordered by Provider MONITORING Monitor Explained: Monitor Explained; Test Explained; Patient Verbalized Understanding Time on Monitor: 01/23/2017 09:44 Time off Monitor: 01/23/2017 10:14 NST Duration: 30 NST INTERVENTIONS NST Interventions: None Physician Notified NST: Dr. Gabriel BABY A: [id number] BABY A Movement : Present Contraction Frequency : none FHR Baseline : 130 Accelerations : 15X15 Decelerations : None Variability : Moderate 6-25bpm NST Review: Meets Criteria for Reactive NST NST Review and Verified By : Estelle Camp RNC NST Results: Reactive NST REPORT Report Trigger: Send Report
== END 2017-01-23 10:35 | disposition home or self-care (01) ==
LOC: LC 08:20
PROVIDERS: ATTEND Obstetrics & Gynecology
PROC: 4A1HXCZ Monitoring of Products of Conception, Cardiac Rate, External Approach (ICD-10-PCS; principal; 2017-01-23)
DX: O32.1XX0 Maternal care for breech presentation, not applicable or unspecified (principal); Z3A.38 38 weeks gestation of pregnancy
CPT/HCPCS: 94760; 86900; 86901; 36415; 86850; 85025; 86592; 59025; J3105

== ENCOUNTER 2017-01-27 01:06 | Inpatient (IN) | payer MEDICAID ==
[2017-01-27 01:54] LABS: APPEARANCE,URINE CLEAR; BILIRUBIN,URINE NEGATIVE (NEGATIVE); GLUCOSE, URINE NEGATIVE (NEGATIVE); KETONES,URINE NEGATIVE (NEGATIVE); LEUKOCYTE ESTERASE,URINE NEGATIVE (NEGATIVE); NITRITE,URINE NEGATIVE (NEGATIVE); PROTEIN,URINE NEGATIVE (NEGATIVE); UROBILINOGEN,URINE NEGATIVE mg/dL (<2.0)
[2017-01-27 01:56] LABS: AMNISURE (ROM) POSITIVE (NEGATIVE)
[2017-01-27] MEDS ORDERED: RINGERS SOLUTION,LACTATED 1,000 ML IV PRN (02:11)
[2017-01-27 02:22] LABS: URINE BARBITURATES SCREEN NEGATIVE; URINE METHADONE SCREEN NEGATIVE; URINE OPIATES LOW NEGATIVE; URINE PHENCYCLIDINE SCREEN NEGATIVE
[2017-01-27 02:48] LABS: ABSOLUTE BASOPHILS # (AUTO) 0.1 10^3/uL (0.0-0.2); ABSOLUTE EOSINOPHILS # (AUTO) 0.2 10^3/uL (0.0-0.6); ABSOLUTE LYMPHOCYTES (AUTO) 3.7 10^3/uL (0.5-4.7); ABSOLUTE NEUT (AUTO) 6.4 10^3/uL (1.7-8.2); BASOPHILS % (AUTO) 0.5 % (0-2); EOSINOPHILS % (AUTO) 1.7 % (0-6); HEMATOCRIT 32.7 % (36.0-47.0); HEMOGLOBIN 10.9 g/dL (12.0-15.5); LYMPHOCYTES % (AUTO) 32.2 % (13-45); MEAN CORPUSCULAR HEMOGLOBIN 27.6 pg (27.0-33.4); MEAN CORPUSCULAR HGB CONC 33.3 g/dL (32.0-36.0); MEAN CORPUSCULAR VOLUME 83 fl (80-97); MONOCYTES % (AUTO) 9.1 % (3-13); RED BLOOD COUNT 3.95 10^6/uL (3.72-5.28); RED CELL DISTRIBUTION WIDTH 14.3 % (11.5-14.0); SEGMENTED NEUTROPHILS % (AUTO) 56.5 % (42-78); WHITE BLOOD COUNT 11.4 10^3/uL (4.0-10.5)
[2017-01-27] MEDS ORDERED: OXYTOCIN/NORMAL SALINE 20 UNIT/1,000 ML RTUINJ ONE (07:03)
[2017-01-27] MEDS ORDERED: FENTANYL/BUPIVACAINE/NS/PF 200 MCG/100 ML RTUINJ EPI ONE (09:10)
[2017-01-27] MEDS ORDERED: EPHEDRINE SULFATE INJ 50 MG/1 ML AMPULE ONE (09:10)
[2017-01-27] MEDS ORDERED: BUPIVACAINE HCL 0.25 % INJ/PF (2.5 MG/1 ML) 30 ML VIAL ONE (09:10)
[2017-01-27] MEDS ORDERED: MISOPROSTOL 0.2 MG TABLET ONE (12:16)
[2017-01-27] MEDS ORDERED: LIDOCAINE 1% INJ-PF (10 MG/ML) 30 ML SDV ONE (12:16)
[2017-01-27] MEDS ORDERED: ACETAMINOPHEN WITH CODEINE #3 TABLET PO PRN ×2 (13:08)
[2017-01-27] MEDS ORDERED: OXYTOCIN/NORMAL SALINE 20 UNIT/1,000 ML RTUINJ IV PRN (13:08)
[2017-01-27] MEDS ORDERED: BENZOCAINE/MENTHOL AEROSOL SPRAY 56 ML TOP PRN (13:08)
[2017-01-27] MEDS ORDERED: MEASLES,MUMPS&RUBELLA VACC/PF 0.5 ML VIAL SUBCUT PRN (13:08)
[2017-01-27] MEDS ORDERED: ZOLPIDEM TARTRATE 5 MG TABLET PO PRN (13:08)
[2017-01-27] MEDS ORDERED: DIBUCAINE 1% OINTMENT 28 GM TP PRN (13:08)
[2017-01-27] MEDS ORDERED: DIPH/PERTUSS(ACELL)/TETANUS VAC/PF 0.5 ML SYR (>=10YO) IM PRN (13:08)
--- NOTE | 2017-01-27 16:31 | Admission Physical ---
Datetime Report Generated by CPN: 01/27/2017 16:30 CURRENT ADMISSION Chief Complaint: Uterine Contractions; Suspected Ruptured Membranes Indication for Induction: PROM Admit Plan: Admit to Unit; Initiate Labor Protocol ALLERGIES Medication Allergies: No Medication Allergies: peanut (01/14/2017); cinnamon (01/14/2017) Medication Allergies: peanut (01/10/2017); cinnamon (01/10/2017) Medication Allergies: No Known Allergies (12/27/2016) Medication Allergies: No Known Allergies (12/12/2016) Medication Allergies: No Known Allergies (09/30/2016) Latex: No Latex Allergies Food Allergies: Cinnamon OBSTETRICAL HISTORY EDC: 02/02/2017 00:00 : 2 : 3 Para: 1 Term: 1 : 0 SAB: 0 IAB: 0 IAB: 1 Ectopic: 0 Livin Cesareans: 0 VBACs: 0 Multiple Births: 0 Gestational Diabetes: No Rh Sensitization: No Incompetent Cervix: No MAYNOR: No Infertility: No ART Treatment: No Uterine Anomaly: No IUGR: No Hx Previous C/S: No Macrosomia: No Hx Loss/Stillborn: No PIH: No Hx : No Placenta Previa/Abruption: No Depression/PP Depression: No PTL/PROM: No Post Hemorrhage: No Current Procedures: Ultrasound; Breech Version Obstetrical History Comments: G1: 08/2010 7lbs 3oz G2: 2015 5 week EAB G3: Current, GDM? SEE RECORDS Alcohol: No Marijuana : No Cocaine: No Other Illicit Drugs: No Cigarettes: Never Smoker. [id number] MEDICAL HISTORY Diabetes: No Blood Transfusion: No Pulmonary Disease (Asthma, TB): No Breast Disease: No Hypertension: No Nuclear Engineer Surgery: No Heart Disease: No Hosp/Surgery: Yes Autoimmune Disorder: No Anesthetic Complications: No Kidney Disease: Yes Abnormal Pap Smear: No Neuro/Epilepsy: No Psychiatric Disorders: No Other Medical Diseases: No Hepatitis/Liver Disease: No Significant Family History: No Varicosities/Phlebitis: No Trauma/Violence : No Thyroid Dysfunction: No Medical History Comments: UTI, ? cyst removal hospitalization as a child, 2010 delivery of child INFECTIOUS HISTORY Gonorrhea: No Genital Herpes: No Chlamydia: No Tuberculosis: No Syphilis: No Hepatitis: Unknown HIV/AIDS Exposure: No Rash or Viral Illness: No HPV: No Infectious History Comments: BV this , reactive Hep C then retest was nonreactive PHYSICAL EXAM General: Normal HEENT: Normal Neurologic: Normal Thyroid: Normal Heart: Normal Lungs: Normal Breast: Normal Back: Normal Abdomen: Normal Genitourinary Exam: Normal Extremities: Normal DTRs: Normal Pelvic Type: Adequate Vital Signs: Reviewed VAGINAL EXAM Dilatation: 4 Effacement: 50 Station: -1 MEMBRANES Pooling: Positive Membranes: Ruptured Amniotic Fluid Color: Clear FETUS A EGA: 39.1 Monitoring: External US FHR- Baseline: 140 Variability: Moderate 6-25bpm Accelerations: 15X15 Decelerations: None FHR Category: Category I Estimated Weight (gm): 3500 Presentation: Vertex PLANS FOR LABOR AND DELIVERY Labor and Delivery: None Pain Management: Epidural Feeding Preference: Breast Benefit of Breast Feed Discussed: Yes Circumcision: N/A INFORMED CONSENT Signature: with User ID: [email or web address]
[2017-01-27] MEDS: IBUPROFEN 800 MG TABLET PO SCH (17:09)
[2017-01-27] MEDS: DOCUSATE SODIUM 100 MG CAPSULE PO SCH (17:10)
[2017-01-27] MEDS: FERROUS SULFATE 325 MG TABLET PO SCH (17:10)
[2017-01-28] MEDS: IBUPROFEN 800 MG TABLET PO SCH ×4 (00:03→22:28)
[2017-01-28 07:40] LABS: HEMATOCRIT 34.4 % (36.0-47.0); HEMOGLOBIN 11.3 g/dL (12.0-15.5); HGB HCT DIFFERENCE -0.5; MEAN CORPUSCULAR HEMOGLOBIN 27.7 pg (27.0-33.4); MEAN CORPUSCULAR VOLUME 84 fl (80-97); RED CELL DISTRIBUTION WIDTH 14.9 % (11.5-14.0); WHITE BLOOD COUNT 14.4 10^3/uL (4.0-10.5)
--- NOTE | 2017-01-28 09:37 | PDOC PROGRESS REPORT ---
Subjective-OB Subjective: Post Delivery Day: 1 26 year old. Denies any needs at this time, states lohcia is stable, pain well controlled, voiding without difficulty. Physical Exam (OB) Vital Signs: Temp Pulse Resp BP Pulse Ox 97.8 F 67 18 119/69 99 01/27/17 20:12 01/27/17 20:12 01/27/17 20:12 01/27/17 20:12 01/27/17 20:12 Intake & Output 01/27/17 01/28/17 01/29/17 06:59 06:59 06:59 Intake Total 1000 Balance 1000 - PIH/Pre-Eclampsia DTR's: 2 + Clonus: Negative Headache: Absent Epigastric Pain: No Visual Changes: No - Lochia Lochia Amount: Scant < 10 ml Lochia Color: Rubra/Red - Abdomen Description: Tender, Soft, Flat Hernia Present: No Fundal Description: Firm, Midline Fundal Height: u/u - u/2 Objective-Diagnostic Laboratory: 01/28/17 07:05 01/28/17 07:05 WBC 14.4 H RBC 4.10 Hgb 11.3 L Hct 34.4 L MCV 84 MCH 27.7 MCHC 33.0 RDW 14.9 H Plt Count 278 Assessment and Plan(PN) - Assessment and Plan (1) Delivery normal Is this a current diagnosis for this admission?: Yes Plan: routine pp care - Time Spent with Patient Time with patient: Less than 15 minutes Critical Time spent with patient: Less than 15 minutes Medications reviewed and adjusted accordingly: Yes - Disposition Anticipated Discharge: Home Within: within 24 hours
[2017-01-28] MEDS: PRENATAL VITAMIN W-O CA NO5/FE FUMARATE/FA CAPSULE PO SCH (10:52)
[2017-01-28] MEDS: FERROUS SULFATE 325 MG TABLET PO SCH ×2 (10:52→17:50)
[2017-01-28] MEDS: SENNOSIDES/DOCUSATE 8.6-50 MG 1 EACH TABLET PO SCH (10:53)
[2017-01-28] MEDS: DOCUSATE SODIUM 100 MG CAPSULE PO SCH ×2 (10:53→17:50)
[2017-01-29] MEDS: IBUPROFEN 800 MG TABLET PO SCH ×2 (05:00→14:05)
[2017-01-29 08:38] VITALS: BP 108/63
--- NOTE | 2017-01-29 09:26 | Delivery Summary ---
Del Sum A-C Datetime Report Generated by CPN: 01/29/2017 09:26 DELIVERY PERSONNEL DELIVERY PERSONNEL: [id number] Delivery Doctor:: Brittaney Bauman MD Labor and Delivery Nurse:: Carey Wilson RNlacquer pin press operator Nurse:: Kathya Summers RN Patient Registrar/LEATHER GOODS MAKER: Mini David, MATHEMATICS IMPROVEMENT TEACHER MATERNAL INFORMATION Delivery Anesthesia: Epidural Medications After Delivery: Pitocin Bolus-Please Comment Meds After Delivery Comment: Pitocin 20 units in 1000mL NS Estimated Blood Loss (ml): 150 Maternal Complications: None Provider Comments: Pt progressed to over first degree perineal lac of female infant with apgars 9 and 9. Head delivered OLY. Shoulders and body delivered easily thereafter. Cord clamped and cut. Placenta spont and intact. Mom and baby doing well. LABOR SUMMARY EDC: 02/02/2017 00:00 No. Babies in Womb: 1 Attempted: No Labor Anesthesia: Epidural LABOR INFORMATION Reason for Induction: Not Applicable Onset of Labor: 01/27/2017 00:25 Complete Dilatation: 01/27/2017 12:28 Oxytocin: Augmentation Group B Beta Strep: negative Antibiotics # of Doses: 0 Antibiotics Time of Last Dose: N/A Name of Antibiotic Given: N/A Steroids Given: None Reason Steroids Not Administered: Not Applicable MEMBRANES Membranes Rupture Method: Spontaneous Rupture of Membranes: 01/27/2017 01:55 Length of Rupture (hr): 10.93 Amniotic Fluid Color: Clear Amniotic Fluid Amount: Scant Amniotic Fluid Odor: Normal STAGES OF LABOR Stage 1 hr: 12 Stage 1 min: 3 Stage 2 hr: 0 Stage 2 min: 23 Stage 3 hr: 0 Stage 3 min: 4 Total Time in Labor hr: 12 Total Time in Labor min: 30 VAGINAL DELIVERY Laceration Type: Perineal Laceration Repair: Not Applicable Laceration Repair Note: with 2-0 chromic BABY A INFORMATION Infant Delivery Date/Time: 01/27/2017 12:51 Method of Delivery: Vaginal Method of Delivery: Vaginal Born in Route : No : N/A Forceps: N/A Vacuum Extraction: N/A Shoulder Dystocia : No PRESENTATION/POSITION BABY A Presentation: Cephalic Cephalic Presentation: Vertex Vertex Position: Right Occipital Anterior Breech Presentation: N/A PLACENTA INFORMATION BABY A Placenta Delivery Time : 01/27/2017 12:55 Placenta Method of Delivery: Spontaneous Placenta Method of Delivery: Spontaneous Placenta Status: Delivered SCORES BABY A Heart Rate 1 min: >100 bpm Resp Effort 1 min: Good Cry Reflex Irritability 1 min: Cough or Sneeze or Pulls Away Muscle Tone 1 min: Active Motion Color 1 min: Body [place], Extremities Blue Resuscitation Effort 1 min: Tactile Stimulation SCORE 1 MIN: 9 Heart Rate 5 min: >100 bpm Resp Effort 5 min: Good Cry Reflex Irritability 5 min: Cough or Sneeze or Pulls Away Muscle Tone 5 min: Active Motion Color 5 min: Body [place], Extremities Blue Resuscitation Effort 5 min: Tactile Stimulation SCORE 5 MIN: 9 INFORMATION BABY A Gestational Age at Delivery: 39.1 Gestational Status: Full Term- 39- 40.6 Weeks Infant Outcome : Liveborn Condition : Stable Sex: Female Sex: Female IDENTIFICATION BABY A Verification Date/Time: 01/27/2017 13:38 ID Band Number: [id number] Mother's Name Verified: Yes RN Verifying : Lizzie Guidry, RN CORD INFORMATION BABY A No. Cord Vessels: 3 Nuchal Cord : N/A Cord Blood Taken: Yes-For Eval (Mom's Blood Type - or O+) Cord Blood Taken: Yes-For Eval (Mom's Blood Type - or O+) Suction: Mouth; Nose ASSESSMENT BABY A Skin to Skin: Yes Skin to Skin Time (min): 20 BABY B INFORMATION : N/A SIGNATURES Signature: with User ID: [email or web address]
[2017-01-29] MEDS: DOCUSATE SODIUM 100 MG CAPSULE PO SCH (09:50)
[2017-01-29] MEDS: FERROUS SULFATE 325 MG TABLET PO SCH (09:50)
[2017-01-29] MEDS: PRENATAL VITAMIN W-O CA NO5/FE FUMARATE/FA CAPSULE PO SCH (09:50)
[2017-01-29] MEDS: SENNOSIDES/DOCUSATE 8.6-50 MG 1 EACH TABLET PO SCH (09:50)
--- NOTE | 2017-01-29 12:11 | PDOC DISCHARGE SUMMARY ---
Final Diagnosis Discharge Date: 01/29/17 Discharge Data - Discharge Medication Home Medications: Pnv No.103/Folic/Om3s/Fish Oil [ Gummies] 2 tab.chew PO DAILY 12/12/16 Acetaminophen [Tylenol] 650 mg PO PRN PRN 12/27/16 Ibuprofen [Motrin 800 mg Tablet] 800 mg PO Q8HP PRN #30 tablet 01/29/17 Reason(s) for Admission: Onset of Labor, PROM Procedures: Ultrasound Intrapartum Procedure(s): Spontaneous Vaginal Delivery Complication(s): Laceration-Perineal Laceration-Degree: 1st - Diagnosis Test Laboratory: Temp Pulse Resp BP Pulse Ox 98.6 F 80 18 108/63 98 01/29/17 08:29 01/29/17 08:29 01/29/17 08:29 01/29/17 07:30 01/29/17 08:29 01/27/17 01/27/17 01/28/17 01:20 02:37 07:05 RBC 3.95 4.10 Hgb 10.9 L 11.3 L Hct 32.7 L 34.4 L Urine Opiates Screen NEGATIVE - Discharge information/Instructions Discharge Activity: Activity As Tolerated, Balance Activity w/Rest, No Lifting Over 10 Pounds, No Lifting/Push/Pulling, Pelvic Rest, No tub bath Discharge Diet: As Tolerated, Regular Disposition: HOME, SELF-CARE Follow up with: [facility] in: 4, Weeks
== END 2017-01-29 14:05 | disposition home or self-care (01) | DRG 775 ==
LOC: LC 01:06 → LR 02:20 → 2S 16:00
PROVIDERS: ADMIT Specialist; ATTEND Specialist
PROC: 10E0XZZ Delivery of Products of Conception, External Approach (ICD-10-PCS; principal; 2017-01-27)
PROC: 0HQ9XZZ Repair Perineum Skin, External Approach (ICD-10-PCS; 2017-01-27)
DX: O70.0 First degree perineal laceration during delivery (principal); Z3A.39 39 weeks gestation of pregnancy; Z37.0 Single live birth
CPT/HCPCS: 36415; 80307; 81005; 84112; 85025; 85027; 86592; 86850; 86900; 86901; J2590; J3490

== ENCOUNTER 2017-06-21 18:45 | Emergency (ER) | payer MEDICAID ==
--- NOTE | 2017-06-21 22:00 | ER Document Report ---
ED Flu Like - General Chief Complaint: Flu Symptoms Stated Complaint: FLU SYMPTOMS Time Seen by Provider: 06/21/17 20:44 Mode of Arrival: Ambulatory Information source: Patient Notes: 26-year-old female presented to ED for cough cold congestion with as burning and dizziness since this morning. She denies any fevers. She states she has had a sore throat for a couple days. Her vital signs on Pivot were 98.9 for temp 77 pulse 14 respirations O2 sat of 98 and blood pressure 114/75. TRAVEL OUTSIDE OF THE [place] IN LAST 30 DAYS: No - HPI Onset: This morning Timing/Duration: Intermittent Quality of pain: Achy Severity: Mild Pain Level: 2 CO exposure: No Associated symptoms: Body/muscle aches, Nonproductive cough, Sinus pain/drainage , Sore throat Similar symptoms previously: Yes Recently seen / treated by doctor: No - Related Data Allergies/Adverse Reactions: cinnamon Allergy (Verified 01/14/17 04:41) peanut Allergy (Verified 01/14/17 04:41) Past Medical History - General Information source: Patient - Social History Smoking Status: Never Smoker Cigarette use (# per day): No Chew tobacco use (# tins/day): No Smoking Education Provided: No Frequency of alcohol use: Social Drug Abuse: None Lives with: Family Family History: Reviewed & Not Pertinent, Hypertension Patient has suicidal ideation: No Patient has homicidal ideation: No - Past Medical History Cardiac Medical History: Reports: None Pulmonary Medical History: Reports: None EENT Medical History: Reports: None Neurological Medical History: Reports: None Endocrine Medical History: Reports: None Renal/ Medical History: Reports: None Malignancy Medical History: Reports: None GI Medical History: Reports: None Musculoskeltal Medical History: Reports None Skin Medical History: Reports Hx Cellulitis Psychiatric Medical History: Reports: None Traumatic Medical History: Reports: None Infectious Medical History: Reports: None Surgical Hx: Negative Past Surgical History: Reports: None - Immunizations Immunizations up to date: Yes Hx Diphtheria, Pertussis, Tetanus Vaccination: - unk Review of Systems - Review of Systems Notes: Constitutional: [PRESENT: as per HPI. Chills and headache ABSENT: fever(s), weight gain, weight loss] Eyes: [ABSENT: visual disturbances] Ears: [ABSENT: hearing changes] Nasopharynx: Burning eyes nasal drainage Cardiovascular: [ABSENT: chest pain, dyspnea on exertion, edema, orthropnea, palpitations] Respiratory: [ABSENT: cough, hemoptysis] Gastrointestinal: [ABSENT: abdominal pain, constipation, diarrhea, hematemesis, hematochezia, nausea, vomiting] Genitourinary: [ABSENT: dysuria, hematuria] Musculoskeletal: [ABSENT: joint swelling] Integumentary: [ABSENT: rash, wounds] Neurological: [ABSENT: abnormal gait, abnormal speech, confusion, dizziness, focal weakness, syncope] Psychiatric: [ABSENT: anxiety, depression, homicidal ideation, suicidal ideation ] Endocrine: [ABSENT: cold intolerance, heat intolerance, menstrual abnormalities , polydipsia, polyuria] Hematologic/Lymphatic: [ABSENT: easy bleeding, easy bruising, lymphadenopathy] Physical Exam - Vital signs Vitals: Temp Pulse Resp BP Pulse Ox 98.9 F 77 14 114/75 98 06/21/17 19:21 06/21/17 19:21 06/21/17 19:21 06/21/17 19:21 06/21/17 19:21 - Notes Notes: PHYSICAL EXAMINATION: GENERAL: Well-appearing, well-nourished and in no acute distress. HEAD: Atraumatic, normocephalic. EYES: Pupils equal round and reactive to light, extraocular movements intact, conjunctiva are normal. ENT: Pale boggy nasal turbinates, postnasal drip with no hypertrophy of tonsils or exudates. Moist mucous membranes. NECK: Normal range of motion, supple without lymphadenopathy LUNGS: Breath sounds clear to auscultation bilaterally and equal. No wheezes rales or rhonchi. HEART: Regular rate and rhythm without murmurs ABDOMEN: Soft, nontender, nondistended abdomen. No guarding, no rebound. No masses appreciated. Female : deferred Musculoskeletal: Normal range of motion, no pitting or edema. No cyanosis. NEUROLOGICAL: Cranial nerves grossly intact. Normal speech, normal gait. Normal sensory, motor exams PSYCH: Normal mood, normal affect. SKIN: Warm, Dry, normal turgor, no rashes or lesions noted. Course - Re-evaluation Re-evalutation: 06/21/17 22:17 Assessment consistent with an upper respiratory infection. Strep test run as patient states she had a sore throat. Mild redness but no enlargement of the tonsils and no exudate. Strep test was negative. Patient was discharged with instructions for Tylenol Motrin for upper respiratory infection and to follow- up with her primary doctor. Patient verbalized understanding of instructions. Patient denied any other questions or concerns. - Vital Signs Vital signs: Temp Pulse Resp BP Pulse Ox 98.9 F 77 14 114/75 98 06/21/17 19:21 06/21/17 19:21 06/21/17 19:21 06/21/17 19:21 06/21/17 19:21 Discharge - Discharge Clinical Impression: URI (upper respiratory infection) Qualifiers: URI type: unspecified URI Qualified Code(s): J06.9 - Acute upper respiratory infection, unspecified Condition: Stable Disposition: HOME, SELF-CARE Instructions: Family Physicians / Practices Additional Instructions: UPPER RESPIRATORY ILLNESS: You have a viral infection of the respiratory passages -- a "cold." This common infection causes nasal congestion, drainage, and often sore throat and cough. It is highly contagious. The disease usually lasts about 10 to 14 days. There is no "cure" for the viral infection -- it must run its course. If there is a complication, such as bacterial infection in the nose, sinuses, middle ear, or bronchial tubes, antibiotics may be required. The antibiotics won't affect the virus. Drink plenty of fluids. A humidifier may help. An expectorant medication or decongestant may make you more comfortable. Use acetaminophen or ibuprofen for fever or aches. See the doctor if fever persists over two days, if there is any significant worsening of your symptoms, or if you simply fail to improve as expected. DECONGESTANT MEDICATION: A decongestant medicine has been suggested. Often this medicine is combined in the same tablet with an antihistamine or expectorant. This type of medicine is helpful in treating a bad cold or sinus condition, as well as in treatment of the nasal congestion of hay fever. It is not of much benefit for lung infections. Decongestant medicines are related to stimulants. They can cause an increase in blood pressure and heart rate. Persons with heart disease and high blood pressure should not take decongestants without discussing this with the physician. If you develop palpitations, chest pain, headache, or tremors, stop the medicine and consult your physician. COUGH-SUPPRESSANT & EXPECTORANT MEDICATION: You are to use a cough medication as needed for relief of symptoms. This medicine is a combination of an expectorant (to make the mucous thinner and more easily "coughed up") and a cough suppressant (to reduce the frequency of coughing). The cough-suppressant medicine is related to narcotics. You may experience mild nausea and sleepiness. Some patients who are very sensitive to narcotics may have stomach pain from this medicine. Taking the medicine with food reduces these side effects. Do not drive or work with machinery until you know how this medicine affects you. The expectorant should have no side effects. Iodine-containing expectorants (such as organidin) should not be taken by persons with active thyroid disease unless approved by your doctor. Call the doctor if you develop shortness of breath, hives, rash, itching, lightheadedness, or severe nausea and vomiting. USE OF ACETAMINOPHEN (Tylenol): Acetaminophen may be taken for pain relief or fever control. It's much safer than aspirin, offering a wider range of "safe" dosages. It is safe during . Some brand names are Tylenol, Panadol, Datril, Anacin 3, Tempra, and Liquiprin. Acetaminophen can be repeated every four hours. The following are maximum recommended dosages: >89 pounds or adults 650 mg to 900 mg Acetaminophen can be repeated every four hours. Maximum dose not to exceed 4000 mg a day. Ibuprofen Ibuprofen is an excellent, safe drug for pain control. In addition, it has potent antiinflammatory effects which are beneficial, especially in the treatment of injuries, arthritis, or tendonitis. It's best to take ibuprofen with food. Persons with ulcer disease or allergy to aspirin should notify their physician of this before taking ibuprofen. Take the medication exactly as prescribed. Don't take additional doses unless instructed to do so by your doctor. If you develop wheezing, shortness of breath, hives, faintness, stomach pain, vomiting, or dark black stools, return for re-evaluation at once. FOLLOW-UP CARE: If you have been referred to a physician for follow-up care, call the physician s office for an appointment as you were instructed or within the next two days. If you experience worsening or a significant change in your symptoms, notify the physician immediately or return to the Emergency Department at any time for re-evaluation.
[2017-06-21 22:23] VITALS: BP 119/74
== END 2017-06-21 22:31 | disposition home or self-care (01) ==
LOC: ER 18:45
DX: J06.9 Acute upper respiratory infection, unspecified (principal); J02.9 Acute pharyngitis, unspecified; R05 Cough; R42 Dizziness and giddiness; R09.82 Postnasal drip; M79.1 Myalgia; J34.89 Other specified disorders of nose and nasal sinuses; R68.83 Chills (without fever); R51 Headache; Z91.018 Allergy to other foods; Z91.010 Allergy to peanuts
CPT/HCPCS: 87070; 87880; 99283

== ENCOUNTER 2017-07-18 09:25 | Emergency (ER) | payer MEDICAID ==
[2017-07-18 09:47] VITALS: BP 116/75
--- NOTE | 2017-07-18 10:15 | ER Document Report ---
HPI - HPI Patient complains to provider of: Sore throat Pain Level: 3 Context: It is a 26-year-old healthy female complaining of sore throat 3 days with fever and body aches. Has had positive strep exposure. [place] the [employer]. Coworker has strep. Patient denies any postnasal drip or cough Associated Symptoms: Body/muscle aches, Fever, Headache, Sore throat Relieved by: Denies - ROS Systems Reviewed and Negative: Yes All other systems reviewed and negative - CONSTITUTIONAL Constitutional: REPORTS: Fever, Chills - EENT EENT: REPORTS: Sore Throat, Ear Pain. DENIES: Eye problems - NEURO Neurology: DENIES: Headache, Weakness, Vision blurred, Dizzinesss / Vertigo - CARDIOVASCULAR Cardiovascular: DENIES: Chest pain - RESPIRATORY Respiratory: DENIES: Trouble Breathing, Coughing - GASTROINTESTINAL Gastrointestinal: DENIES: Abdominal Pain, Black / Bloody Stools - URINARY Urinary: DENIES: Dysuria, Urgency, Frequency - REPRODUCTIVE Reproductive: DENIES: :, Postmenopausal, Abnormal bleeding / discharge - MUSCULOSKELETAL Musculoskeletal: DENIES: Extremity pain Past Medical History - General Information source: Patient - Social History Smoking Status: Current Every Day Smoker Chew tobacco use (# tins/day): No Frequency of alcohol use: None Drug Abuse: None Lives with: Family Family History: Reviewed & Not Pertinent, Hypertension Patient has suicidal ideation: No Patient has homicidal ideation: No - Medical History Medical History: Negative Renal/ Medical History: Denies: Hx Peritoneal Dialysis Skin Medical History: Reports Hx Cellulitis - Immunizations Immunizations up to date: Yes Hx Diphtheria, Pertussis, Tetanus Vaccination: - unk Vertical Provider Document - CONSTITUTIONAL Agree With Documented VS: Yes Exam Limitations: No Limitations - INFECTION CONTROL TRAVEL OUTSIDE OF THE [place] IN LAST 30 DAYS: No - HEENT HEENT: Atraumatic, PERRLA, Pharyngeal Exudate, Pharyngeal Tenderness, Pharyngeal Erythema Notes: no Muffled voice, trismus or drooling - NECK Neck: Normal Inspection, Lymphadenopathy-Left, Lymphadenopathy-Right - RESPIRATORY Respiratory: Breath Sounds Normal, No Respiratory Distress O2 Sat by Pulse Oximetry: 99 - CARDIOVASCULAR Cardiovascular: Regular Rate, Regular Rhythm - GI/ABDOMEN Gastrointestinal: Abdomen Soft, Abdomen Non-Tender - NEURO Level of Consciousness: Awake, Alert, Appropriate - DERM Integumentary: Warm, Dry Course - Re-evaluation Re-evalutation: 07/18/17 10:11 History and physical are consistent with pharyngitis. And has known strep contact and a positive history of strep throat. There is no signs of peritonsillar abscess, epiglottitis, meningitis, dehydration or sepsis no airway compromise, difficulty talking, or swallowing. Will provide a 10 day course of antibiotic. Home care discussed. Return ED precautions reviewed. Follow-up care with primary care provider encouraged. Patient agreeable with plan and stable for discharge 07/18/17 10:16 - Vital Signs Vital signs: Temp Pulse Resp BP Pulse Ox 99.6 F 105 H 18 116/75 99 07/18/17 09:45 07/18/17 09:45 07/18/17 09:45 07/18/17 09:45 07/18/17 09:45 Discharge - Discharge Clinical Impression: Pharyngitis Qualifiers: Pharyngitis/tonsillitis etiology: unspecified etiology Qualified Code(s): J02.9 - Acute pharyngitis, unspecified Instructions: Penicillin V K ([facility]), Sore Throat ([facility]) Additional Instructions: Continue for strep throat take All of your antibiotic as prescribed lozenges and salt water gargles for comfort Recommend to change her toothbrush in 24 hours to prevent reinfection Prescriptions: Penicillin V Potassium [Penicillin Vk 500 mg Tablet] 500 mg PO BID #20 tablet
== END 2017-07-18 10:28 | disposition home or self-care (01) ==
LOC: ER 09:25
DX: J02.9 Acute pharyngitis, unspecified (principal); R50.9 Fever, unspecified; M79.1 Myalgia; R51 Headache; F17.200 Nicotine dependence, unspecified, uncomplicated
CPT/HCPCS: 99283

== ENCOUNTER 2019-03-09 16:21 | Emergency (ER) | payer SELFPAY ==
--- NOTE | 2019-03-09 16:43 | ER Document Report ---
ED Medical Screen (RME) - General Mode of Arrival: Ambulatory Information source: Patient TRAVEL OUTSIDE OF THE [place] IN LAST 30 DAYS: No <CHRYSTAL CRANE - Last Filed: 03/09/19 22:11> <GILA VIDALES - Last Filed: 03/10/19 20:07> - General Chief Complaint: Chest Pressure Stated Complaint: CHEST PRESSURE Time Seen by Provider: 03/09/19 16:41 Notes: 28-year-old female presented to ED for complaint of chest pain short of breath tingling in her face and hands. She states she got very upset last night and started with the tingling in her face and hands today she developed the chest pain with shortness of breath. She is alert oriented respirations regular nonlabored speaking in full sentences. She states she does not smoke occasionally drinks and does not use drugs. (CHRYSTAL CRANE) - Related Data Allergies/Adverse Reactions: cinnamon Allergy (Verified 07/18/17 09:30) peanut Allergy (Verified 07/18/17 09:30) Past Medical History Renal/ Medical History: Denies: Hx Peritoneal Dialysis Skin Medical History: Reports Hx Cellulitis - Immunizations Immunizations up to date: Yes Hx Diphtheria, Pertussis, Tetanus Vaccination: - unk <CHRYSTAL CRANE - Last Filed: 03/09/19 22:11> Physical Exam - Vital signs Vitals: Temp Pulse Resp BP Pulse Ox 97.9 F 66 16 117/79 100 03/09/19 16:37 03/09/19 16:37 03/09/19 16:37 03/09/19 16:37 03/09/19 16:37 Course - Laboratory Result Diagrams: 03/09/19 16:51 03/09/19 16:51 <CHRYSTAL CRANE - Last Filed: 03/09/19 22:11> - Laboratory Result Diagrams: 03/09/19 16:51 03/09/19 16:51 <GILA VIDALES - Last Filed: 03/10/19 20:07> - Vital Signs Vital signs: Temp Pulse Resp BP Pulse Ox 98.4 F 65 16 122/74 98 03/09/19 18:17 03/09/19 18:17 03/09/19 18:17 03/09/19 18:17 03/09/19 18:17 - Laboratory Laboratory results interpreted by me: 03/09/19 16:51 Urine Blood LARGE H Urine Urobilinogen 4.0 H Procedures - Intubation Orotracheal Airway evaluation: Large tongue Mallampati Classification: Class 3 Medications: Etomidate, Other - Rocuronium Intubation method: Orotracheal Blade type: Tommy Blade size: 3 Equipment used: Glidescope ETT size: 7.5 ETT secured at: Teeth ETT secured at (cm): 23 Breath Sounds after Intubation: Equal End tidal CO2 confirmed: Yes <GILA VIDALES - Last Filed: 03/10/19 20:07> Doctor's Discharge <CHRYSTAL CRANE - Last Filed: 03/09/19 22:11> <GILA VIDALES - Last Filed: 03/10/19 20:07> - Discharge Clinical Impression: Anxiety Chest pain Qualifiers: Chest pain type: other chest pain Qualified Code(s): R07.89 - Other chest pain Condition: Stable Disposition: HOME, SELF-CARE Additional Instructions: You are seen today in the emergency department for chest pain and numbness of y our face and fingers. Your labs and chest x-ray are all reassuring and are normal. Your symptoms are most likely due to the situation you are in with your boyfriend. The situation is most likely causing you to have anxiety, therefore having these other symptoms. Please make sure you get plenty of rest. You are being prescribed Vistaril for your anxiety. You may take it as directed as needed. Prescriptions: Hydroxyzine Pamoate [Vistaril 25 mg Capsule] 25 mg PO Q6HP PRN #14 capsule PRN Reason:
[2019-03-09] MEDS ORDERED: ASPIRIN 325 MG TABLET PO ONE (16:45)
[2019-03-09 17:11] LABS: ABSOLUTE BASOPHILS # (AUTO) 0.1 10^3/uL (0.0-0.2); ABSOLUTE EOSINOPHILS # (AUTO) 0.2 10^3/uL (0.0-0.6); ABSOLUTE LYMPHOCYTES (AUTO) 3.5 10^3/uL (0.5-4.7); ABSOLUTE MONOCYTES (AUTO) 0.9 10^3/uL (0.1-1.4); ABSOLUTE NEUT (AUTO) 3.4 10^3/uL (1.7-8.2); BASOPHILS % (AUTO) 0.8 % (0-2); EOSINOPHILS % (AUTO) 3.1 % (0-6); HEMATOCRIT 40.8 % (36.0-47.0); HEMOGLOBIN 13.6 g/dL (12.0-15.5); LYMPHOCYTES % (AUTO) 43.1 % (13-45); MEAN CORPUSCULAR HGB CONC 33.3 g/dL (32.0-36.0); MEAN CORPUSCULAR VOLUME 84 fl (80-97); MONOCYTES % (AUTO) 10.7 % (3-13); PLATELET COUNT 344 10^3/uL (150-450); RED BLOOD COUNT 4.86 10^6/uL (3.72-5.28); SEGMENTED NEUTROPHILS % (AUTO) 42.3 % (42-78); TOTAL CELLS COUNTED % (AUTO) 100 %
[2019-03-09 17:21] LABS: APPEARANCE,URINE SLIGHTLY-CLOUDY; BILIRUBIN,URINE NEGATIVE (NEGATIVE); COLOR,URINE YELLOW; GLUCOSE, URINE NEGATIVE (NEGATIVE); KETONES,URINE NEGATIVE (NEGATIVE); PROTEIN,URINE NEGATIVE (NEGATIVE); URINE SPECIFIC GRAVITY 1.026
--- NOTE | 2019-03-09 17:26 | RADIOLOGY REPORT (SQ) ---
EXAM DESCRIPTION: CHEST 2 VIEWS COMPLETED DATE/TIME: 03/09/2019 5:11 pm REASON FOR STUDY: chest pain COMPARISON: Chest radiographs 09/30/2016. EXAM PARAMETERS: NUMBER OF VIEWS: two views TECHNIQUE: Digital Frontal and Lateral radiographic views of the chest acquired. RADIATION DOSE: NA LIMITATIONS: none FINDINGS: LUNGS AND PLEURA: No opacities, masses or pneumothorax. No pleural effusion. MEDIASTINUM AND HILAR STRUCTURES: No masses or contour abnormalities. HEART AND VASCULAR STRUCTURES: Heart normal size. No evidence for failure. BONES: No acute findings. HARDWARE: None in the chest. OTHER: No other significant finding. IMPRESSION: NO ACUTE RADIOGRAPHIC FINDING IN THE CHEST. TECHNICAL DOCUMENTATION: JOB ID: [id number] [employer]- All Rights Reserved Reading location - IP/workstation name: [email or web address]
[2019-03-09 17:36] LABS: ALBUMIN 4.9 g/dL (3.5-5.0); ALKALINE PHOSPHATASE 48 U/L (38-126); ANION GAP 10 (5-19); ASPARTATE AMINO TRANSFERASE 27 U/L (14-36); BILIRUBIN,DIRECT 0.2 mg/dL (0.0-0.4); BILIRUBIN,TOTAL 0.8 mg/dL (0.2-1.3); BLOOD UREA NITROGEN 14 mg/dL (7-20); CALCIUM 9.8 mg/dL (8.4-10.2); CARBON DIOXIDE 26 mmol/L (22-30); CHLORIDE 105 mmol/L (98-107); CREATINE KINASE 81 U/L (30-135); GLUCOSE 88 mg/dL (75-110); POTASSIUM 4.4 mmol/L (3.6-5.0); TOTAL PROTEIN 8.1 g/dL (6.3-8.2)
[2019-03-09 17:51] LABS: CREATINE KINASE MB 0.34 ng/mL (<4.55)
[2019-03-09 17:52] LABS: TROPONIN I < 0.012 ng/mL
--- NOTE | 2019-03-09 18:01 | ER Document Report ---
ED Cardiac - General Chief Complaint: Chest Pressure Stated Complaint: CHEST PRESSURE Time Seen by Provider: 03/09/19 16:41 Mode of Arrival: Ambulatory Notes: Patient is a 28-year-old female who presents the emergency department with a chief complaint chest heaviness. She states that she felt some chest heaviness yesterday in the middle of the day. She states that she is having issues with her boyfriend. Patient states that she also feels numbness and tingling in her face and fingers. Patient states that she feels angry about their situation of him not being faithful. Patient denies any past medical history. She does not take any medications. Patient denies any weaknesses, blurred vision, or any other symptoms. Patient is currently on her menstrual cycle. TRAVEL OUTSIDE OF THE [place] IN LAST 30 DAYS: No - Related Data Allergies/Adverse Reactions: cinnamon Allergy (Verified 07/18/17 09:30) peanut Allergy (Verified 07/18/17 09:30) Past Medical History - General Information source: Patient - Social History Smoking Status: Never Smoker Frequency of alcohol use: Social Drug Abuse: None Family History: Reviewed & Not Pertinent, Hypertension Patient has suicidal ideation: No Patient has homicidal ideation: No Renal/ Medical History: Denies: Hx Peritoneal Dialysis Skin Medical History: Reports Hx Cellulitis - Immunizations Immunizations up to date: Yes Hx Diphtheria, Pertussis, Tetanus Vaccination: - unk Review of Systems - Review of Systems Notes: REVIEW OF SYSTEMS: CONSTITUTIONAL : Denies recent illness. Denies recent unintentional weight loss. Denies fever, chills, or sweats. EENT: Denies eye, ear, throat, or mouth pain, discharge, or symptoms. Denies nasal or sinus congestion. CARDIOVASCULAR: See HPI. RESPIRATORY: Denies shortness of breath, cough, congestion, difficulty breathing, or wheezing. GASTROINTESTINAL: Denies nausea, vomiting, and diarrhea. Denies abdominal pain. Denies constipation. GENITOURINARY: Denies difficulty urinating, burning, blood in urine, urgency or frequency. MUSCULOSKELETAL: Denies neck and back pain. Denies joint pain or swelling. SKIN: Denies rash, itchiness, or lesions HEMATOLOGIC : Denies easy bruising or bleeding. LYMPHATIC: Denies swollen, painful, enlarged glands. NEUROLOGICAL: See HPI. PSYCHIATRIC: Denies stress, anxiety, alteration in sleep patterns, or depression. All other systems reviewed and negative. Physical Exam - Vital signs Vitals: Temp Pulse Resp BP Pulse Ox 97.9 F 66 16 117/79 100 03/09/19 16:37 03/09/19 16:37 03/09/19 16:37 03/09/19 16:37 03/09/19 16:37 - Notes Notes: PHYSICAL EXAMINATION: GENERAL: Appears well, healthy, well-nourished, no acute distress. HEAD: Normocephalic, atraumatic. EYES: PERRL, conjunctiva normal, all extraocular movements intact, sclera nonicteric ENT: Moist mucous membranes. NECK: Supple, no noticeable swelling, redness, rash. Normal range of motion. LUNGS: Equal breath sounds bilaterally and clear to auscultation. No wheezes rales or rhonchi. CARDIOVASCULAR: S1-S2, regular rate, regular rhythm. Radial pulses 2+, normal. ABDOMEN: Normoactive bowel sounds. Soft, nontender, no guarding, no rebound tenderness, and no masses palpated. EXTREMITIES: Normal strength and range of motion, no pitting or edema. No cyanosis. NEUROLOGICAL: Moves all extremities upon command. Strength 5/5 in all extremities. PSYCH: Appears anxious, normal affect. SKIN: Warm, dry. No rash, lesions, ulcerations noted. Normal skin turgor. Course - Re-evaluation Re-evalutation: 03/09/19 Chest x-ray is unremarkable. Hematology and chemistries are normal. Lipase is normal. hCG is negative. Urinalysis ordered in triage shows that the patient has a large amount of blood in her urine. Patient states that she is on her menstrual cycle at this time, which explains why she has blood in her urine. I suspect the patient's symptoms are due to anxiety. Patient states that she feels anxious when thinking about her boyfriend. I asked her if she wanted to take medications for her anxiety and she said yes. She will be sent home with a prescription for Vistaril. I also offered her therapeutic meditation suggested therapeutic meditation to help with her anxiety she does not want to take Vistaril. I have very low suspicion for pulmonary emboli, acute SC, or any life-threatening etiology at this time. We will follow-up with the primary care provider. Follow-up precautions were given. Verbal discharge instructions were given to the patient. They verbalized understanding. They are stable for discharge. - Vital Signs Vital signs: Temp Pulse Resp BP Pulse Ox 98.4 F 65 16 122/74 98 03/09/19 18:17 03/09/19 18:17 03/09/19 18:17 03/09/19 18:17 03/09/19 18:17 - Laboratory Result Diagrams: 03/09/19 16:51 03/09/19 16:51 Laboratory results interpreted by me: 03/09/19 16:51 Urine Blood LARGE H Urine Urobilinogen 4.0 H - EKG Interpretation by Me Additional EKG results interpreted by me: 03/09/19 Sinus rhythm. Rate 67. [place] 136; QRS 92; QT 416; QTc 439. No ST elevations or depressions noted. Discharge - Discharge Clinical Impression: Anxiety Chest pain Qualifiers: Chest pain type: other chest pain Qualified Code(s): R07.89 - Other chest pain Condition: Stable Disposition: HOME, SELF-CARE Additional Instructions: You are seen today in the emergency department for chest pain and numbness of your face and fingers. Your labs and chest x-ray are all reassuring and are normal. Your symptoms are most likely due to the situation you are in with your boyfriend. The situation is most likely causing you to have anxiety, therefore having these other symptoms. Please make sure you get plenty of rest. You are being prescribed Vistaril for your anxiety. You may take it as directed as needed. Prescriptions: Hydroxyzine Pamoate [Vistaril 25 mg Capsule] 25 mg PO Q6HP PRN #14 capsule PRN Reason:
[2019-03-09 18:17] VITALS: BP 122/74
--- NOTE | 2019-03-09 21:36 | EKG REPORT ---
SEVERITY:- NORMAL ECG - SINUS RHYTHM : Confirmed by: Robin Gaxiola MD 09-Mar-2019 21:35:47
== END 2019-03-09 18:20 | disposition home or self-care (01) ==
LOC: ER 16:21
DX: F41.9 Anxiety disorder, unspecified (principal); R07.89 Other chest pain; R20.0 Anesthesia of skin; R20.2 Paresthesia of skin; R31.9 Hematuria, unspecified; Z63.0 Problems in relationship with spouse or partner; Z91.018 Allergy to other foods; Z91.010 Allergy to peanuts
CPT/HCPCS: 36415; 71046; 80053; 81001; 82550; 82553; 83690; 84484; 84703; 85025; 93005; 93010

== ENCOUNTER 2019-06-03 17:19 | Emergency (ER) | payer SELFPAY ==
[2019-06-03 17:31] VITALS: BP 134/86
--- NOTE | 2019-06-03 17:35 | ER Document Report ---
HPI - HPI Time Seen by Provider: 06/03/19 17:27 Pain Level: 3 Notes: 28-year-old female presents emergency room for complaints of sore throat for the last 2 days. Patient states she has been exposed to strep. Reports fevers, reports dry cough, denies body aches. Did not get the flu shot this year. Decreased eating but drinking without issues. Patient states this feels like her previous strep throat. Denies fevers, chills, chest pain,palpitations, shortness of breath, dyspnea, nausea, vomiting, diarrhea, abdominal pain, hematuria,blurred vision, double vision, loss of vision, speech changes, LH, dizziness, syncope, headaches, wheezing, neck pain, weakness, bowel or bladder dysfunction, saddle anesthesia, numbness or tingling in bilateral upper or lower extremities equally, muscle paralysis, weakness in bilateral upper or lower extremities equally or rash. Denies IV drug use. - REPRODUCTIVE Reproductive: DENIES: : Past Medical History - General Information source: Patient - Social History Smoking Status: Never Smoker Family History: Reviewed & Not Pertinent, Hypertension Patient has suicidal ideation: No Patient has homicidal ideation: No Renal/ Medical History: Denies: Hx Peritoneal Dialysis Skin Medical History: Reports Hx Cellulitis - Immunizations Immunizations up to date: Yes Hx Diphtheria, Pertussis, Tetanus Vaccination: - unk Vertical Provider Document - CONSTITUTIONAL Agree With Documented VS: Yes Exam Limitations: No Limitations General Appearance: WD/WN Notes: PHYSICAL EXAMINATION: reviewed vital signs by RN GENERAL: Well-appearing, well-nourished and in no acute distress. HEAD: Atraumatic, normocephalic. EYES: Pupils equal round and reactive to light, extraocular movements intact, conjunctiva are normal. ENT: Nares patent, oropharynx clear with exudates. Moist mucous membranes. NECK: Normal range of motion, supple without lymphadenopathy LUNGS: Breath sounds clear to auscultation bilaterally and equal. No wheezes rales or rhonchi. HEART: Regular rate and rhythm without murmurs ABDOMEN: Soft, nontender, nondistended abdomen. No guarding, no rebound. No masses appreciated. Female : deferred Musculoskeletal: Normal range of motion, no pitting or edema. No cyanosis. NEUROLOGICAL: Cranial nerves grossly intact. Normal speech, normal gait. Normal sensory, motor exams PSYCH: Normal mood, normal affect. SKIN: Warm, Dry, normal turgor, no rashes or lesions noted. - INFECTION CONTROL TRAVEL OUTSIDE OF THE [place] IN LAST 30 DAYS: No Course - Re-evaluation Re-evalutation: 06/03/19 17:34 Afebrile vital stable no distress. Nurse's notes reviewed.Presentation of several days of sore throat in an otherwise well-appearing patient. Rapid strep is positive. History and exam are not consistent with a retropharyngeal abscess or peritonsillar abscess. Airway is patent. No difficulty handling oral secret ions. Vitals within normal limits. At this time will discharge with return precautions and follow-up recommendations. Verbal discharge instructions given a the bedside and opportunity for questions given. Medication warnings reviewed. Patient is in agreement with this plan and has verbalized understanding of return precautions and the need for primary care follow-up in the next 24-48 hours Discharge - Discharge Clinical Impression: Strep throat Condition: Stable Disposition: HOME, SELF-CARE Instructions: Acetaminophen, Fever ([facility]), Penicillin V K ([facility]), Sore Throat ([facility]), Strep Throat ([facility]) Additional Instructions: You are being treated for strep throat. Change her toothbrush in 2 days do not reinfect yourself. You are contagious for 24 hours after starting antibiotics. Do not share any cups or utensils. Wash hands frequently. Return immediately for any new or worsening symptoms. You have been diagnosed with strep throat based on a positive strep test. Please continue to take ibuprofen 600 mg every 6 hours or Tylenol 1000 mg every 6 hours as needed for throat discomfort. You can also gargle with salt water. Continue to drink plenty of fluids. Follow-up with your primary care doctor in the next several days. Return if you become unable to swallow, have difficulty breathing, pass out, have persistent vomiting that prevents you from being able to tolerate fluids, or have any other symptoms that are concerning to you. Follow up with primary care provider, call tomorrow to make followup appointment. Prescriptions: Penicillin V Potassium [Penicillin Vk 500 mg Tablet] 500 mg PO BID #20 tablet Forms: Return to Work Referrals: HAYDER SEARS MD [ACTIVE STAFF] - Follow up as needed
== END 2019-06-03 17:40 | disposition home or self-care (01) ==
LOC: ER 17:19
DX: J02.0 Streptococcal pharyngitis (principal); R50.9 Fever, unspecified; R05 Cough
CPT/HCPCS: 87880; 99283

== ENCOUNTER 2019-07-15 17:08 | Emergency (ER) | payer SELFPAY ==
[2019-07-15 17:26] VITALS: BP 118/59
[2019-07-15] MEDS ORDERED: IBUPROFEN 600 MG TABLET PO ONE (18:36)
--- NOTE | 2019-07-15 18:36 | ER Document Report ---
ED Flu Like - General Chief Complaint: Cold Symptoms Stated Complaint: COUGH,SORE THROAT Time Seen by Provider: 07/15/19 18:32 Mode of Arrival: Ambulatory Information source: Patient Notes: 28-year-old female presented to ED for cough cold congestion runny nose since yesterday. Been afebrile. She is here with her daughter who has similar symptoms. TRAVEL OUTSIDE OF THE [place] IN LAST 30 DAYS: No - HPI Onset: Yesterday Timing/Duration: Persistent Quality of pain: No pain Severity: None Pain Level: Denies Associated symptoms: Nonproductive cough, Rhinnorhea, Sinus pain/drainage Similar symptoms previously: Yes Recently seen / treated by doctor: No - Related Data Allergies/Adverse Reactions: cinnamon Allergy (Verified 07/15/19 18:25) peanut Allergy (Verified 07/15/19 18:25) Past Medical History - General Information source: Patient - Social History Smoking Status: Never Smoker Frequency of alcohol use: None Drug Abuse: None Lives with: Family Family History: Reviewed & Not Pertinent, Hypertension Patient has suicidal ideation: No Patient has homicidal ideation: No - Past Medical History Cardiac Medical History: Reports: None Pulmonary Medical History: Reports: None EENT Medical History: Reports: None Neurological Medical History: Reports: None Endocrine Medical History: Reports: None Renal/ Medical History: Reports: None Malignancy Medical History: Reports: None GI Medical History: Reports: None Musculoskeletal Medical History: Reports None Skin Medical History: Reports Hx Cellulitis Psychiatric Medical History: Reports: None Traumatic Medical History: Reports: None Infectious Medical History: Reports: None - Immunizations Immunizations up to date: Yes Hx Diphtheria, Pertussis, Tetanus Vaccination: - unk Review of Systems - Review of Systems Constitutional: Recent illness EENT: Sinus pressure, Sinus discharge Cardiovascular: No symptoms reported Respiratory: Cough Gastrointestinal: No symptoms reported Genitourinary: No symptoms reported Female Genitourinary: No symptoms reported Musculoskeletal: No symptoms reported Skin: No symptoms reported Hematologic/Lymphatic: No symptoms reported Neurological/Psychological: No symptoms reported Physical Exam - Vital signs Vitals: Temp Pulse Resp BP Pulse Ox 98.5 F 69 16 118/59 L 100 07/15/19 17:24 07/15/19 17:24 07/15/19 17:24 07/15/19 17:24 07/15/19 17:24 Interpretation: Normal - General General appearance: Appears well, Alert - HEENT Head: Normocephalic, Atraumatic Eyes: Normal Pupils: PERRL Ears: Normal External canal: Normal Tympanic membrane: Normal Sinus: Normal Nasal: Purulent discharge, Swelling Mouth/Lips: Normal Mucous membranes: Normal Pharynx: Normal Neck: Normal - Respiratory Respiratory status: No respiratory distress Chest status: Nontender Breath sounds: Nonproductive cough. No: Rales, Rhonchi, Stridor, Wheezing Chest palpation: Normal - Cardiovascular Rhythm: Regular Heart sounds: Normal auscultation Murmur: No - Abdominal Inspection: Normal Distension: No distension Bowel sounds: Normal Tenderness: Nontender Organomegaly: No organomegaly - Back Back: Normal, Nontender - Extremities General upper extremity: Normal inspection, Nontender, Normal color, Normal ROM, Normal temperature General lower extremity: Normal inspection, Nontender, Normal color, Normal ROM, Normal temperature, Normal weight bearing. No: Cande's sign - Neurological Neuro grossly intact: Yes Cognition: Normal Orientation: AAOx4 [place] Coma Scale Eye Opening: Spontaneous [place] Coma Scale Verbal: Oriented [place] Coma Scale Motor: Obeys Commands [place] Coma Scale Total: 15 Speech: Normal Motor strength normal: LUE, RUE, LLE, RLE Sensory: Normal - Psychological Associated symptoms: Normal affect, Normal mood - Skin Skin Temperature: Warm Skin Moisture: Dry Skin Color: Normal Course - Re-evaluation Re-evalutation: 07/15/19 18:35 After performing a Medical Screening Examination, I estimate there is LOW risk for ACUTE CORONARY SYNDROME, RESPIRATORY FAILURE, SEPSIS OR MENINGITIS, thus I consider the discharge disposition reasonable. I have reevaluated this patient multiple times and no significant life threatening changes are noted. The patient and I have discussed the diagnosis and risks, and we agree with discharging home with close follow-up. We also discussed returning to the Emergency Department immediately if new or worsening symptoms occur. We have discussed the symptoms which are most concerning (e.g., changing or worsening pain, trouble swallowing or breathing, neck stiffness, fever) that necessitate immediate return. - Vital Signs Vital signs: Temp Pulse Resp BP Pulse Ox 98.5 F 69 16 118/59 L 100 07/15/19 17:24 07/15/19 17:24 07/15/19 17:24 07/15/19 17:24 07/15/19 17:24 Discharge - Discharge Clinical Impression: URI (upper respiratory infection) Qualifiers: URI type: unspecified viral URI Qualified Code(s): J06.9 - Acute upper respiratory infection, unspecified Condition: Stable Disposition: HOME, SELF-CARE Additional Instructions: UPPER RESPIRATORY ILLNESS: You have a viral infection of the respiratory passages -- a "cold." This common infection causes nasal congestion, drainage, and often sore throat and cough. It is highly contagious. The disease usually lasts about 10 to 14 days. There is no "cure" for the viral infection -- it must run its course. If there is a complication, such as bacterial infection in the nose, sinuses, middle ear, or bronchial tubes, antibiotics may be required. The antibiotics won't affect the virus. Drink plenty of fluids. A humidifier may help. An expectorant medication or decongestant may make you more comfortable. Use acetaminophen or ibuprofen for fever or aches. See the doctor if fever persists over two days, if there is any significant worsening of your symptoms, or if you simply fail to improve as expected. You have been recommended treatment with Claritin 10 mg Sudafed 30 mg and Mucin ex 600 mg. These are all [id number] medications for cough cold congestion. You do need to call the go to the pharmacist to get the Sudafed from behind the counter please get a little red pills they are more effective. You could also use Flonase which is [id number] 1 spray each nostril twice a day. You could also use salt soda solution gargles. These will help to remove the drainage from the back your throat. Chloraseptic spray was [id number] that will also help with your sore throat. Salt and soda solution gargle 1 quart of water 1 tablespoon of salt 1 teaspoon of baking soda Mixed 3 ingredients together and boil for 1 minute Placed in a covered quart jar Use 1/2 ounce of cold solution to gargle 3 times a day USE OF ACETAMINOPHEN (Tylenol): Acetaminophen may be taken for pain relief or fever control. It's much safer than aspirin, offering a wider range of "safe" dosages. It is safe during . Some brand names are Tylenol, Panadol, Datril, Anacin 3, Tempra, and Liquiprin. Acetaminophen can be repeated every four hours. The following are maximum recommended dosages: >89 pounds or adults 650 mg to 900 mg Acetaminophen can be repeated every four hours. Maximum dose not to exceed 4000 mg a day. FOLLOW-UP CARE: If you have been referred to a physician for follow-up care, call the physicians office for an appointment as you were instructed or within the next two days. If you experience worsening or a significant change in your symptoms, notify the physician immediately or return to the Emergency Department at any time for re-evaluation. Forms: Return to Work
== END 2019-07-15 19:31 | disposition home or self-care (01) ==
LOC: ER 17:08
DX: J06.9 Acute upper respiratory infection, unspecified (principal); B97.89 Other viral agents as the cause of diseases classified elsewhere; R05 Cough; R09.89 Other specified symptoms and signs involving the circulatory and respiratory systems; J34.89 Other specified disorders of nose and nasal sinuses; Z91.018 Allergy to other foods
CPT/HCPCS: 99283

== ENCOUNTER 2020-03-30 21:26 | Emergency (ER) | payer SELFPAY ==
[2020-03-30] MEDS ORDERED: ACETAMINOPHEN 325 MG TABLET PO ONE (21:39)
--- NOTE | 2020-03-30 22:35 | ER Document Report ---
ED ENT - General Chief Complaint: Sore Throat Stated Complaint: FLU SYMPTOMS Time Seen by Provider: 03/30/20 22:28 Mode of Arrival: Ambulatory Information source: Patient Notes: Patient is a 20-year-old female comes emergency room complaint of sore throat. Patient states it started this morning and is gotten worse. She states that she has a long history of strep throat and this is exactly how it feels when it starts. Patient also states that 1 week ago she was tested for COVID-19, strep, influenza AMB and all was negative. She states she is self quarantine prior to that happening so she knows that this is not the Covid or the flu. She has not been around anyone at that time. She does state that when the weather changes she has a tendency to get strep pharyngitis. She states that she noticed white pustules on the back right tonsil and her tonsils are starting to enlarge. This is the signs that she is getting the pharyngitis. Patient denies any other medical problems currently takes no medications. Patient denies smoking alcohol or narcotics. TRAVEL OUTSIDE OF THE [place] IN LAST 30 DAYS: No - HPI Patient complains to provider of: Throat problem Onset: This morning Onset/Duration: Sudden, Persistent, Worse Quality of pain: Sharp Severity: Moderate Pain Level: 3 Location of pain: Throat Associated symptoms: Fever, Sore throat. denies: Congestion, Headache, Stiff neck Similar symptoms previously: Yes Recently seen / treated by doctor: No - Related Data Allergies/Adverse Reactions: cinnamon Allergy (Verified 03/30/20 22:18) peanut Allergy (Verified 03/30/20 22:18) Past Medical History - General Information source: Patient - Social History Smoking Status: Never Smoker Frequency of alcohol use: Social Drug Abuse: None Lives with: Family Family History: Reviewed & Not Pertinent, Hypertension Skin Medical History: Reports Hx Cellulitis - Immunizations Immunizations up to date: Yes Hx Diphtheria, Pertussis, Tetanus Vaccination: - unk Review of Systems - Review of Systems Constitutional: See HPI, Fever EENT: Throat pain. denies: Nose congestion, Nose discharge Cardiovascular: No symptoms reported Respiratory: No symptoms reported Gastrointestinal: No symptoms reported Genitourinary: No symptoms reported Female Genitourinary: No symptoms reported Musculoskeletal: No symptoms reported Skin: No symptoms reported Hematologic/Lymphatic: No symptoms reported Neurological/Psychological: No symptoms reported -: Yes All other systems reviewed and negative Physical Exam - Vital signs Vitals: Temp Pulse Resp BP Pulse Ox 102.3 F H 116 H 18 113/74 97 03/30/20 21:33 03/30/20 21:33 03/30/20 21:33 03/30/20 21:33 03/30/20 21:33 Interpretation: Tachycardic, Febrile - Notes Notes: PHYSICAL EXAMINATION: GENERAL: Well-appearing, well-nourished and in no acute distress. HEAD: Atraumatic, normocephalic. ENT: Examination patient's head and upper airway show nasal mucosa be mildly erythematous and edematous with no rhinorrhea. Posterior pharynx shows bilateral enlarged tonsils with the right tonsil larger than the left with white pustules into the crevices of the tonsils on the right side. Airway is patent. NECK: Normal range of motion, patient does display some mild anterior bilateral cervical lymphadenopathy. LUNGS: Breath sounds clear to auscultation bilaterally and equal. No wheezes rales or rhonchi. HEART: Tachycardic rate and rhythm without murmurs NEUROLOGICAL: . Normal speech, normal gait. Normal sensory, motor exams PSYCH: Normal mood, normal affect. SKIN: Warm, Dry, normal turgor, no rashes or lesions noted. Course - Re-evaluation Re-evalutation: 03/30/20 22:33 Patient was very adamant that this is her normal presentation of strep pharyngitis. I offered to do the work-up with the Covid and a influenza but patient stated she had a done about a week ago it was all negative and she has not been around anybody to get any of that. I agree that this appears to be a pharyngitis most likely strep. I did talk to her about mono patient states she is not had any association with anyone sick so she does not believe to be that either. So patient is requesting we just go ahead and treat the strep. I did culture it and it is going out for that and patient will contact to see if it is positive or not. This time we will start her on some amoxicillin steroid pack. - Vital Signs Vital signs: Temp Pulse Resp BP Pulse Ox 102.3 F H 116 H 18 113/74 97 03/30/20 21:33 03/30/20 21:33 03/30/20 21:33 03/30/20 21:33 03/30/20 21:33 Discharge - Discharge Clinical Impression: Exudative pharyngitis Condition: Stable Disposition: HOME, SELF-CARE Instructions: Sore Throat ([facility]), Tonsillitis ([facility]) Additional Instructions: Home and rest. Medications prescribed. Use warm salt water gargles 3-4 times a day or use Chloraseptic spray. Tylenol alternate with Motrin every 4 hours to keep your fever down. Push fluids but avoid milk and dairy for the next 48 to 72 hours because this causes increased secretions. As we discussed I can tell you this is in fact strep throat until the culture comes back if you should progressively get worse or have any concerns at all return to ER for reevaluation. You can contact medical records on 24 hours to find out the results of that test. Prescriptions: Amoxicillin 1 tab PO TID #30 tab Methylprednisolone [Medrol Dosepack (4 mg/Tab) 21 Tab/Dosepak] 21 tab PO ASDIR PRN #1 [id number] PRN Reason: Forms: Return to Work Referrals: JOSE JANE MD [HONORARY] - Follow up as needed
[2020-03-30 22:38] VITALS: BP 120/72
[2020-03-30] MEDS ORDERED: AMOXICILLIN TRIHYDRATE 500 MG CAPSULE PO ONE (22:40)
[2020-03-30] MEDS ORDERED: PREDNISONE 20 MG TABLET PO ONE (22:40)
== END 2020-03-30 22:46 | disposition home or self-care (01) ==
LOC: ER 21:26
DX: J02.9 Acute pharyngitis, unspecified (principal); J35.1 Hypertrophy of tonsils; R50.9 Fever, unspecified; R00.0 Tachycardia, unspecified; Z91.018 Allergy to other foods; Z91.010 Allergy to peanuts
CPT/HCPCS: 99283; 87880; J7512